=== PATIENT | male | born 1940 ===

== ENCOUNTER 2023-06-20 12:41 | Outpatient (REF) | payer MEDICARE, OTHER, SELFPAY ==
--- NOTE | ~2023-06-20 | XR_ITS ---
EXAMINATION: XR LUMBOSACRAL SPINE WITH OBLIQUES CLINICAL INFORMATION: Low back pain COMPARISON: None available. TECHNIQUE: AP, both oblique, and lateral views of the lumbar spine. Lateral view of the lumbosacral junction. Flexion and extension views FINDINGS: Facet degenerative change L4-S1. There is advanced degenerative change at the L2-L3 level, with minor retrolisthesis L2 upon L3, at 4.7 mm. There may be very minimal forward spondylolisthesis L4 upon L5 at 2 mm. No significant change on flexion versus extension. No fracture or destructive process. XR/XR lumbar spine 4V min IMPRESSION: Degenerative changes predominantly at L2-L3.. Facet degenerative change L4-S1. No instability.
== END 2023-06-20 12:42 | disposition home or self-care (01) ==
LOC: HO.HOSX 12:41
PROVIDERS: Visit Provider Neurological Surgery
DX: M51.16 Intervertebral disc disorders with radiculopathy, lumbar region (principal)
CPT/HCPCS: 72110; 99202

== ENCOUNTER 2023-06-20 12:41 | Outpatient (AMB) | payer MEDICARE, OTHER, SELFPAY ==
--- NOTE | 2023-06-20 12:58 | HO.SPINEOV ---
Intake Intake Visit Reasons: spinal stenosis Intake Note: Mr. Almaguer is here today c/o Low back pain that radiates to both legs. Consulting Solution Director Required: No Allergies No Known Allergies Allergy (Verified 06/20/23 12:59) Assessment & Plan Assessment & Plan (1) Lumbar disc herniation with radiculopathy: Code(s): M51.16 - Intervertebral disc disorders with radiculopathy, lumbar region Plan: Dear colleague Thank you for referring Jan Almaguer to the office today with a chief complaint of left-sided back pain radiating to his left thigh. HPI: Approximately 2 years ago the patient developed severe acute pain on the left side of his back radiating to his left thigh. Since that time the pain has been lingering and treated with for epidural steroid injections. The injections give temporary relief for months. Currently the pain is manageable and worse in the morning. The last injection was 3 weeks ago and he has not taking any medications since that time. He denies weakness or numbness. PMH: Endarterectomy Medications: Rosuvastatin, aspirin Allergies: NKDA Social history: Nonsmoker Physical Exam: Pleasant male. Straight leg raise is negative. Motor exam is intact for motor sensation and reflexes. Radiological Studies: MRI done at [facility] on 05/04/2023 shows a large left-sided L2-3 disc herniation that causes severe L2-3 spinal stenosis and compression of the left L3 nerve root. Dynamic lumbar x-rays today show a grade 1 L2-3 retrolisthesis without instability Impression/Plan: This 83-year-old male is suffering from persistent left L3 radiculopathy due to a large extruded disc herniation L2-3. The pain continues to return despite multiple epidural steroid injections and therefore I offered him L2-3 lumbar microdiskectomy, left-sided approach. He is at risk for recurrent disc herniation if this occurs then he will need a fusion of the segment. Thank you for allowing me to participate in your patients care. total time spent was 50 minutes in counseling ,coordination of plan, personal review of imaging, surgical decision making and subsequent plan Diogenes Rosario MD, PhD Spine Fellowship Trained Neurosurgeon Director, [facility] Orders: Orders XR lumbar spine 4V min Today M51.16 - Intervertebral disc disorders with radiculopathy, lumbar region Coding Level of Care Code New Pt Level 4 (80798) Diagnoses Lumbar disc herniation with radiculopathy M51.16
== END 2023-06-20 13:50 | disposition home or self-care (01) ==
PROVIDERS: PCP Internal Medicine; Visit Provider Neurological Surgery
DX: M51.16 Intervertebral disc disorders with radiculopathy, lumbar region (principal)
CPT/HCPCS: 99204

== ENCOUNTER 2023-10-11 05:44 | Day surgery (SDC) | payer MEDICARE, OTHER, SELFPAY ==
[2023-09-28 09:43] VITALS: BMI 21.9
--- NOTE | 2023-10-10 08:29 | HO.ANESPROP2 ---
HPI - Anesthesia Eval Consult details Narrative: 83yo M for Left L2-3 MicroLumbar discectomy Medically optimized Cardiac optimized. Follows [facility] cardiology for hld, carotid ds s/p CEA in 2019, PACs, orthostatsis DNR PONV PMFSH Active Problems Active Problems: All Active Problems Lumbar disc herniation with radiculopathy (Acute) Past Medical History Medical History PONV (postoperative nausea and vomiting) Lung nodule TIA (transient ischemic attack) Premature atrial contraction Elevated cholesterol Surgical History Surgical History H/O colonoscopy Hx of inguinal hernia repair History of carotid endarterectomy Social History Social History Are you a primary zoo caretaker to a significant other at home: No Do you presently have visiting nurse or other home services: No Comment: counts correct Patient Tobacco Use Status: Former Tobacco user Tobacco use type: Cigarette Years Smoked: 10 Meds Allergies Allergy/AdvReac Type Severity Reaction Status Date / Time No Known Allergies Allergy Verified 06/20/23 12:59 Home Medications ?Medication ?Instructions ?Recorded ?Confirmed ?Last Taken ?Type aspirin 81 mg tablet,delayed 81 mg PO DAILY 09/26/23 09/26/23 10/03/23 History release cholecalciferol (vitamin D3) 25 25 mcg PO DAILY 09/26/23 09/26/23 Unknown History mcg (1,000 unit) capsule (Vitamin D3) rosuvastatin 40 mg tablet 40 mg PO DAILY 09/26/23 09/26/23 Unknown History ibuprofen 200 mg tablet (Advil) 400 mg PO Q6H PRN Pain 09/28/23 09/28/23 10/03/23 History Exam Height,Weight and Vital Signs: Height 5 ft 7 in Weight 63.503 kg Pertinent Lab Results Pertinent Lab Results: 10/01/23 CBC and BMP from outside facility WNL Narrative Narrative: EKG 09/2023 NSR @ 65 ? LAE Carotid US 2022 1-49% stenosis bilat ICA Assessment and Plan Assessment Anesthesia Assessment: Chart Reviewed
[2023-10-11] VITALS (7 sets, daily range): BP systolic 150–164; BP diastolic 66–82; PULSE 66–86; RESP 14–18; TEMP 36.1; O2SAT 96–100
--- NOTE | ~2023-10-11 | FL_ITS ---
EXAMINATION: XR FLUOROSCOPY WITH IMAGES CLINICAL INFORMATION: L2-L3 procedure. COMPARISON: None available. TECHNIQUE: Fluoroscopy Supervised By: Dr. Diogenes Rosario. Fluoroscopy Time: 0 minutes, 5 seconds. Cumulative Dose: 1.163 mGy. DAP: 0.4787 Gycm2. Images: 3. FINDINGS: Intraoperative fluoroscopy and spot films were performed during a procedure in the OR. Marked degenerative change with disc space narrowing seen at L2-L3. A single probe is present at that level on the lateral radiograph. Please correlate with Dr. Rosario' report for complete details. FL/FL guidance in OR IMPRESSION: Intraoperative fluoroscopy and spot films were obtained. Please see Dr. Rosario' report for complete details.
[2023-10-11] MEDS: Gabapentin 300 MG CAPSULE PO (06:00)
[2023-10-11] MEDS: methocarbamoL 750 MG TABLET PO (06:00)
[2023-10-11] MEDS: Scopolamine 1.5 MG PATCH.TD.3 TRANSDERMA (06:10)
[2023-10-11] MEDS: Lactated Ringers 1,000 ML 100 ML IVCONT (06:21)
--- NOTE | 2023-10-11 07:14 | PC.NURSE ---
pt has ezcema all over back arms legs noted and buttock
--- NOTE | 2023-10-11 07:18 | P.CONAN_ITS ---
[facility] Active Problems Active Problems: All Active Problems Lumbar disc herniation with radiculopathy (Acute) Past Medical History Medical History PONV (postoperative nausea and vomiting) Lung nodule TIA (transient ischemic attack) Premature atrial contraction Elevated cholesterol Functional capacity: independent ambulation Family History Family history of problems with anesthesia: No Surgical History Surgical History H/O colonoscopy Hx of inguinal hernia repair History of carotid endarterectomy History of Problems with Anesthesia: No Social History Social History Are you a primary health care aide to a significant other at home: No Do you presently have visiting nurse or other home services: No Patient Tobacco Use Status: Former Tobacco user Tobacco use type: Cigarette Years Smoked: 10 Use of substances other than those prescribed or required for medical reasons: No Have you been hit, kicked, punched, or otherwise hurt by someone within the past year? If so, by whom?: No Are you DNR?: Yes Advance Directives Information Provided: Yes (as above noted-advised to bring copies DOS for [facility] chart) Advance Directives on File: No Recently lost weight without trying: No Eating poorly because of decreased appetite: No Nutrition Risks: Surgical patient >75years Meds Allergies Allergy/AdvReac Type Severity Reaction Status Date / Time No Known Allergies Allergy Verified 06/20/23 12:59 Active Medications: Current Medications Lactated Ringer's (Lr) 1,000 mls @ 100 mls/hr IVCONT .Q10H CASSIE Last Admin: 10/11/23 06:21 Dose: 100 mls/hr Home Medications ?Medication ?Instructions ?Recorded ?Confirmed ?Last Taken ?Type aspirin 81 mg tablet,delayed 81 mg PO DAILY 09/26/23 09/26/23 10/03/23 History release cholecalciferol (vitamin D3) 25 25 mcg PO DAILY 09/26/23 09/26/23 Unknown History mcg (1,000 unit) capsule (Vitamin D3) rosuvastatin 40 mg tablet 40 mg PO DAILY 09/26/23 09/26/23 Unknown History ibuprofen 200 mg tablet (Advil) 400 mg PO Q6H PRN Pain 09/28/23 09/28/23 10/03/23 History Exam Height,Weight and Vital Signs: Height 5 ft 7 in Weight 63.503 kg Last Vital Signs Temp 97 F 10/11/23 06:02 Pulse 70 10/11/23 06:02 Resp 18 10/11/23 06:02 BP 152/82 H 10/11/23 06:02 Pulse Ox 98 10/11/23 06:02 O2 Del Method Room Air 10/11/23 06:02 Airway Mallampati Class: II TM Dist: >3cm Neck ROM: Full Heart: RRR Lungs: CTA Assessment and Plan Assessment Anesthesia Assessment: Anesthesia Plan Discussed and Chart Reviewed Final Anesthetic Review Family History of Problems with Anesthesia: No History of Problems with Anesthesia: No NPO: Yes ASA Class: II Final Preanesthetic Review: Meds/Allgs Chart Reviewed, Consent Obtained/Reviewed, Anes Risks/Benef Reviewed and DNR Form (If Appl.) Patient Risk: Low Procedure Risk: Low Anesthetic Plan Anesthetic Plan: GA Disposition: Standard PACU
--- NOTE | 2023-10-11 07:33 | P.HPSUR_ITS ---
Pre-Procedural Eval Section A - 24 Hr Update-Section A only Date of Service: 10/11/23 The patient is an INPATIENT: No Changes since office visit: No Cold of Flu in the past 2 weeks, No New Medical Problems, No Changes in Medication and No Patient answered all questions The patient has been examined within 24 hours of the surgical procedure. The History & Physical has been completed within 30 days and I have reviewed it.: No Section B - Complete if H&P > 30 days Chief Complaint: Intervertebral disc disorders with radiculopathy, Allergies: Allergies Allergy/AdvReac Type Severity Reaction Status Date / Time No Known Allergies Allergy Verified 06/20/23 12:59 Review of Systems Sugical H&P ROS: Negative: Constitution, Cardiovascular, Respiratory, Neurological, Psychiatric, Hem-Onc, Allergic/Immunologic, Gastrointestinal, Genitourinary, Musculoskeletal, Integumentary, Endocrine and Eyes/Ears/Nose/Thro at Exam Surgical H&P Exam: Normal: HEENT, Normal: Heart, Normal: Lungs, Normal: Extremities, Normal: Abdomen, Normal: Skin and Normal: Neurological (awake, alert, oriented x 3 ) Plan Left L2-3 microdiskectomy Time Spent With Patient Time: Total time managing care of this patient today _5___ minutes.
--- NOTE | 2023-10-11 07:34 | P.DS_ITS ---
DS: Providers Provider Date of Service: 10/11/23 Date of discharge: 10/11/23 Primary care physician: Lisa Batista MD Admitting clinician: Diogenes Rosario DS: Diagnosis Discharge Diagnosis (1) Lumbar disc herniation with radiculopathy: Status: Acute DS: Summary Time Attestation Discharge Coordination Time (in mins): 5 Quality: Safe Use of Opioids Does Pt have an Active Cancer Diagnosis on the Problem List?: No Quality: Stroke Does the patient have a stroke diagnosis?: No Physical Exam 2 Vital Signs: Vital Signs: Last Vital Signs Temp 97 F 10/11/23 06:02 Pulse 70 10/11/23 06:02 Resp 18 10/11/23 06:02 BP 152/82 H 10/11/23 06:02 Pulse Ox 98 10/11/23 06:02 O2 Del Method Room Air 10/11/23 06:02 BMI result Body Mass Index 21.9 Discharge Plan Discharge Patient Disposition: Home, Self-Care Referrals: Lisa Batista MD [Primary Care Provider] - 1 Week Discharge Medications: New docusate sodium [Colace] 100 mg capsule 100 mg PO BID Qty: 20 0RF oxycodone 5 mg tablet 5 mg PO Q4H PRN (Reason: pain) Qty: 20 0RF Rx Instructions: Partial Fill upon patient request. Continued rosuvastatin 40 mg tablet 40 mg PO DAILY cholecalciferol (vitamin D3) [Vitamin D3] 25 mcg (1,000 unit) Capsule 25 mcg PO DAILY ibuprofen [Advil] 200 mg Tablet 400 mg PO Q6H PRN (Reason: Pain) Held aspirin 81 mg Tablet,Delayed Release (Dr/Ec) 81 mg PO DAILY Hold Instructions: Resume on 10/18/23. resume one week after surgery Discharge Orders: Discharge Order (Routine); Ordered 10/11/23 Ordered By: Brendan Miller Diet: Advance to usual diet Activity on Discharge: As tolerated Activity Restrictions/Additional Instructions: After your spinal surgery we ask you to observe the following restrictions/guidelines: Activity: It is normal to feel some discomfort as you increase your activity, but that will improve with time. We ask you avoid heavy lifting or acitivities that cause pain. As a general rule, 8lbs is a safe limit for lifting right after surgery. Walk as much as you feel comfortable but not to exhaustion. You will feel extra tired the first few days after surgery. Stay well hydrated. It is OK to walk up and down stairs You may return to driving when you are off narcotics (such as vicodin, oxycodone, dilaudid, etc), and you are back to normal functional capacity. If you have any concerns please check with office before driving. Return to work is specific to each patient and each surgery, so please speak with your doctor/PA at first follow up. Please bring paperwork such as FMLA at that time if you need it filled out. Medications: Resume your aspirin one week after surgery For optimum pain control, it is best to start with a combination of 500 mg of Tylenol every 4 hours with 600 mg of Motrin every 8 hours, and use narcotics as needed in between for breakthrough pain. We will give you a short supply of narcotics after surgery (usually one weeks worth). If you need more please call the office but do not use more than prescribed. You will need to give our office 48 hours notice if you need narcotics refilled and we do not fill narcotics on weekends or evenings. If you are on a narcotic, it is a good idea to take a stool softener such as colace or senna to avoid constipation If you take blood thinner such as aspirin, Plavix, Coumadin, Effient, Eliquis etc for conditions such as Afib, DVT, Pulmonary embolus, coronary disease, stents etc please speak with your surgeon about specific details as to when you can resume these medications. You can resume NSAIDs on post op day 1 (eg: Motrin, Naproxen, etc). Follow up: Please call the office, , after surgery to arrange a 3 week follow up for wound check. Wound Care: You may remove your dressing on the first day after surgery. ?You may ?leave open to air. Please do not remove the steri strips underneath. they will fall off on their own in one week. IT IS NORMAL FOR THE WOUND TO OOZE OR BE BLOODY FOR A FEW DAYS AFTER SURGERY. ?IF THIS HAPPENS JUST PLACE NEW DRESSING OVER IT TO AVOID STAINING CLOTHES. You may shower on post op day # 1 We ask that you do not let the water soak the wound. If it does get wet, just towel dry lightly. Please do not scrub your incision or place any type of chemical/ointment on the wound. No tub baths, pools or jacuzzis for one month. If you have any leaking or redness from your wound, or fevers, please call office Print Language: Latvian
--- NOTE | 2023-10-11 08:47 | W.PM.OPN ---
Operative Note Operative Note Date of Service: 10/11/23 Narrative: Preoperative diagnosis: Left L3 lumbar radiculopathy due to disc herniation Postoperative diagnosis: Same Procedure: L2-3 lumbar microdiskectomy with microscope Surgeon: Diognees Rosario MD, PhD Counseling Psychologist: jody Aguirre This patient is suffering from a left L3 lumbar radiculopathy due to a large L2-3 disc herniation compressing the left L3 nerve root. Imaging also shows a spondylolisthesis at this level. He was offered a microdiskectomy but is aware that if recurrent disc occurs that he needs a fusion surgery. The procedure complications were explained. The patient was consented. The patient was brought to the operating room and endotracheally intubated. The patient was turned in a prone position on the Saurabh frame. Prepping and draping was done followed by time-out. A mid lumbar incision was made followed by release of the paravertebral muscles on the left side to expose the L2-3 interspace. An intraoperative x-rays obtained to confirm the correct level. The microscope was brought in. A L2 laminotomy was done followed by opening of the flavum ligament. The L3 nerve root was identified and retracted medially to expose the large L2-3 disc herniation. I performed a partial facetectomy to get better access to the disc herniation. Then I perforated the annulus and pushed out several large fragments of disc herniation. This resulted in an excellent decompression of the L3 nerve root. Hemostasis was done. The microscope was removed. Marcaine was injected intramuscularly.The incision was closed in two layers. Steri-Strips used to approximate seizure. An op-site were taken there was used to cover the incision. All sponge and needle counts were correct. Patient was extubated and transported in stable condition to recovery room. this procedure was done with the aid of a physician digital marketing assistant who performed the initial exposure until the microscope was brought in and performed the closure of the incision. Anesthesia: General Blood loss: 10 mL Complications: None Specimen: None Surgical time: 45 minutes Disposition: Discharge home
--- NOTE | 2023-10-11 15:48 | HO.POSTANES ---
Post Anesthesia Evaluation Post Anesthesia Evaluation Date of Service: 10/11/23 Vital Signs: Vital Signs Temp Pulse Resp BP Pulse Ox O2 Del Method O2 Flow Rate 10/11/23 09:54 97 F 73 16 161/68 H 99 Room Air 10/11/23 09:39 66 14 159/77 H 99 Room Air 10/11/23 09:24 73 14 163/81 H 100 Nasal Cannula 2 10/11/23 09:19 69 16 150/66 H 96 Nasal Cannula 2 10/11/23 09:14 73 16 164/73 H 96 Room Air 10/11/23 09:09 97 F 86 16 156/75 H 99 Room Air 10/11/23 06:02 97 F 70 18 152/82 H 98 Room Air Anesthesia: General Endotracheal-GETA Mental Status: Awake Pain Control: Satisfactory Nausea/Vomiting: None Hydration: Adequate Anesthesia-Related Issues: No Anes. Related Issues
== END 2023-10-11 10:32 | disposition home or self-care (01) ==
PROVIDERS: PCP Internal Medicine; Visit Provider Neurological Surgery
PROC: (CPT 63030; principal; 2023-10-11 07:30)
DX: M51.16 Intervertebral disc disorders with radiculopathy, lumbar region (principal); E78.00 Pure hypercholesterolemia, unspecified; I49.1 Atrial premature depolarization; R91.1 Solitary pulmonary nodule; J47.9 Bronchiectasis, uncomplicated; Z86.73 Personal history of transient ischemic attack (TIA), and cerebral infarction without residual deficits; Z79.82 Long term (current) use of aspirin; Z79.1 Long term (current) use of non-steroidal anti-inflammatories (NSAID); Z79.899 Other long term (current) drug therapy; Z98.890 Other specified postprocedural states; Z66 Do not resuscitate; Z87.891 Personal history of nicotine dependence
CPT/HCPCS: 63030; J0131; J0690; J1100; J1885; J2250; J2405; J2704; J3010

== ENCOUNTER → 2023-10-11 05:44 | Outpatient (BNV) | payer MEDICARE, OTHER, SELFPAY | PROVIDERS: PCP Internal Medicine; Visit Provider Neurological Surgery | DX: M51.16 Intervertebral disc disorders with radiculopathy, lumbar region (principal) | CPT/HCPCS: 63030; 99499 ==

== ENCOUNTER 2023-10-31 14:38 | Outpatient (REF) | payer MEDICARE, OTHER, SELFPAY | END 2023-10-31 14:39 | disposition home or self-care (01) | LOC: HO.HOSX 14:38 | PROVIDERS: PCP Internal Medicine; Visit Provider Physician Assistant | DX: Z47.89 Encounter for other orthopedic aftercare (principal); Z87.39 Personal history of other diseases of the musculoskeletal system and connective tissue | CPT/HCPCS: 99212 ==

== ENCOUNTER 2023-10-31 14:38 | Outpatient (AMB) | payer MEDICARE, OTHER, SELFPAY ==
--- NOTE | 2023-10-31 14:50 | A.SPINEOV_ITS ---
Intake Visit Reasons: 1st post op Intake Note: Mr. Almaguer is here today for his 1st post-op visit. Tax Staff Accountant Required: No Allergies No Known Allergies Allergy (Verified 10/31/23 14:51) Assessment & Plan Assessment & Plan (1) Lumbar disc herniation with radiculopathy: Code(s): M51.16 - Intervertebral disc disorders with radiculopathy, lumbar region Category: Medical Plan Procedure: Left L2-3 Lumbar Microdiskectomy Elli comes in today for his 1st follow up visitafter having an L2-3 microdiskectomy completed by our service. He reports that he has lost quite a bit of pain in his low back especially with lateral spine rotation. In addition to this he still has pain in his left hip and near his left knee which he states is worse 1st thing in the morning, gradually resolves with movement as he goes throughout the day. This may be related to a component of osteoarthritis versus lumbar radiculopathy. Dr. Rosario was able to see the patient alongside this journalists and other writers and explained to the patient that is lateral rotation pain is likely result of the bone removal during the microdiskectomy. We answered all the patient's postoperative questions to the best of our ability. No new neurological deficits. The patient is able to ambulate well and rises from a seated position without difficulty. His posterior incision site is closed, well healed, with no signs of drainage. We would like to follow up with the patient again in 6 weeks. At that time we will get a set of x-rays to review with the patient. Donovan Rosario MD,PhD [facility] Orders: Orders XR lumbar spine 4V min Today M51.16 - Intervertebral disc disorders with radiculopathy, lumbar region Coding Level of Care Code Global (21806) Diagnoses Lumbar disc herniation with radiculopathy M51.16
== END 2023-10-31 15:18 | disposition home or self-care (01) ==
PROVIDERS: PCP Internal Medicine; Visit Provider Physician Assistant
DX: M51.16 Intervertebral disc disorders with radiculopathy, lumbar region (principal)
CPT/HCPCS: 99024

== ENCOUNTER 2023-12-14 12:50 | Outpatient (REF) | payer MEDICARE, OTHER, SELFPAY ==
--- NOTE | ~2023-12-14 | XR_ITS ---
EXAMINATION: XR LUMBOSACRAL SPINE CLINICAL INFORMATION: M51.16 - Intervertebral disc disorders with radiculopathy, lumbar region COMPARISON: 06/20/2023. TECHNIQUE: 5 views of the lumbar spine, inclusive of flexion and extension views, were obtained. FINDINGS: There is normal bone mineralization. No compression deformities, fractures, or suspicious bone lesions. There is a minimal right convex scoliosis, which could be positional. There is facet degeneration spanning L4-S1. Degenerative disc changes are present with a mild to moderate degree, with severe changes focally at L2-3. Neutral view demonstrates there is a normal lumbar lordosis. There is a 5 mm retrolisthesis of L2 on L3, which appears degenerative. There is a trace 2 mm anterolisthesis L4 on L5, also degenerative in appearance. On flexion and extension, these remain relatively static without definite worsening to suggest instability. No developing additional subluxations. Soft tissues demonstrate aortobiiliac calcifications. Probable gallstone in the right upper quadrant. XR/XR lumbar spine 4V min IMPRESSION: 1. No acute bony findings lumbar spine. 2. Stable Mild to moderate lumbar spondylosis as described, most significant at L2-3. No definite instability. Electronically signed by: Alex Klein MD 02/24/2024 10:32 PM GIULIANO
== END 2023-12-14 12:51 | disposition home or self-care (01) ==
LOC: HO.XRAY 12:50
PROVIDERS: Visit Provider Physician Assistant
DX: M51.16 Intervertebral disc disorders with radiculopathy, lumbar region (principal)
CPT/HCPCS: 72110; 99212

== ENCOUNTER → 2023-12-14 12:55 | Outpatient (BNV) | payer MEDICARE, OTHER, SELFPAY | PROVIDERS: Visit Provider Radiology Diagnostic Radiology | DX: M51.16 Intervertebral disc disorders with radiculopathy, lumbar region (principal) | CPT/HCPCS: 72110 ==

== ENCOUNTER 2023-12-14 13:23 | Outpatient (AMB) | payer MEDICARE, OTHER, SELFPAY ==
--- NOTE | 2023-12-14 13:26 | A.SPINEOV_ITS ---
Intake Visit Reasons: 2nd post op with xrays Intake Note: Mr. Almaguer is here today for his 2nd post-op visit with xrays. Crossword Puzzle Maker Required: No Allergies No Known Allergies Allergy (Verified 10/31/23 14:51) Assessment & Plan Assessment & Plan (1) Lumbar disc herniation with radiculopathy: Code(s): M51.16 - Intervertebral disc disorders with radiculopathy, lumbar region Category: Medical Plan Dear colleague, On 12/13/2023, I saw for 2nd postoperative visit Elli Almaguer. As you know, he is status post left L2-3 microdiskectomy. The radiating pain is gone. He continues to have a sudden shooting pain on the left side of his back that can occur when he steps down the stairs or coughs. In the morning he has a bandlike pain in the back. Overall, he is doing much better than preoperatively. I told him that the pain is most likely coming this is most likely part of the healing process. I advised him to continue his current activities. I would stay away from excessive stretching. I would like another follow-up in 3 months. Diogenes Rosario MD, PhD Spine Fellowship Trained Neurosurgeon Director, [facility] Coding Level of Care Code Global (29510) Diagnoses Lumbar disc herniation with radiculopathy M51.16
== END 2023-12-14 14:02 | disposition home or self-care (01) ==
PROVIDERS: PCP Internal Medicine; Visit Provider Neurological Surgery
DX: M51.16 Intervertebral disc disorders with radiculopathy, lumbar region (principal)
CPT/HCPCS: 99024

== ENCOUNTER 2024-03-07 14:09 | Outpatient (AMB) | payer MEDICARE, OTHER, SELFPAY ==
--- NOTE | 2024-03-07 14:15 | A.SPINEOV_ITS ---
Intake Visit Reasons: 3M follow up Intake Note: Mr. Almaguer is here today for his 3 month F/u. 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 She know, he underwent a lumbar microdiskectomy for left lumbar radiculopathy that completely resolved. Unfortunately, he continues to complain of a mechanical pain on the left side of his back. In rest the pain is absent. Any kind of movement gives him this left-sided back pain. A dynamic lumbar x-rays shows no signs of instability. Clinically it sounds like a pain it originates from the facet joint. I would like to order an MRI of the lumbar spine to see if the facet joint in the surgical area is inflammation. We will then send him for a facet block. Thank you for allowing me take care of your patient. Diogenes Rosario MD, PhD Spine Fellowship Trained Neurosurgeon Director, [facility] [place] [facility] Orders: Orders MR lumbar spine wo/w con Today M54.59 - Other low back pain Coding Level of Care Code Est Pt Level 2 (58440) Diagnoses Lumbar facet joint pain M54.59
== END 2024-03-07 16:04 | disposition home or self-care (01) ==
PROVIDERS: PCP Internal Medicine; Visit Provider Neurological Surgery
DX: M54.59 Other low back pain (principal)
CPT/HCPCS: 99212

== ENCOUNTER → 2024-03-07 14:09 | Outpatient (BNVA) | payer MEDICARE, OTHER, SELFPAY | PROVIDERS: PCP Internal Medicine; Visit Provider Neurological Surgery | DX: M54.59 Other low back pain (principal) | CPT/HCPCS: 99212 ==

== ENCOUNTER 2024-04-11 14:34 | Outpatient (AMB) | payer MEDICARE, OTHER, SELFPAY ==
--- NOTE | 2024-04-11 15:08 | A.SPINEOV_ITS ---
Vital Signs 04/11/24 15:09 Height 5 ft 6.5 in Weight 140 lb BMI 22.3 Intake Visit Reasons: MRI f/u Intake Note: Mr. Almaguer is here today to F/u on the Results to his MRI. Grinder Operator Automatic Required: No Allergies No Known Allergies Allergy (Verified 04/11/24 15:10) Physical Exam Vital Signs: BMI result Body Mass Index 22.3 Assessment & Plan Assessment & Plan (1) Lumbar facet joint pain: Code(s): M54.59 - Other low back pain Category: Medical Plan Dear colleague, On 04/11/2024 I saw for follow-up Elli Almaguer. As you know he underwent a successful L2-3 lumbar microdiskectomy to treat left lumbar radiculopathy. He remains complaining of a left painful spots at the L2-3 area, especially in the morning that responds to Advil. A 2nd complaint is pain across the lumbar spine. Activity improves the symptoms. We repeated the MRI of the lumbar spine that does not show any signs of inflammation in the L2-3 area. It does show the preexisted L2-3 spondylolisthesis that however shows no significant instability on flexion-extension x-rays. We had an extensive discussion again. I think the pain is related to the left L2-3 facet joint or coming from the L2-3 spondylolisthesis. However, I think it goes too far to offer him an L2-3 fusion and the patient agrees with that. He could try an L2-3 facet block but currently wants to hold off as it does respond to anti-inflammatory drugs. Follow-up as needed. Than 30 minutes in his consult reviewing imaging and answering questions. Diogenes Rosario MD, PhD Spine Fellowship Trained Neurosurgeon Director, [facility] Coding Level of Care Code Est Pt Level 4 (92154) Diagnoses Lumbar facet joint pain M54.59
[2024-04-11 15:09] VITALS: BMI 22.3
== END 2024-04-11 15:51 | disposition home or self-care (01) ==
PROVIDERS: PCP Internal Medicine; Visit Provider Neurological Surgery
DX: M54.59 Other low back pain (principal)
CPT/HCPCS: 99214

== ENCOUNTER → 2024-04-11 14:34 | Outpatient (BNVA) | payer MEDICARE, OTHER, SELFPAY | PROVIDERS: PCP Internal Medicine; Visit Provider Neurological Surgery | DX: M54.59 Other low back pain (principal) | CPT/HCPCS: 99212 ==

== ENCOUNTER 2025-01-28 13:18 | Outpatient (AMB) | payer MEDICARE, OTHER, SELFPAY ==
--- OUTSIDE RECORDS SUMMARY | 2016-05-05 | XMS_ITS | Encounter Summary ---
Author Organization [facility] Address [address] [place] [address] Phone Care Team Providers Care Manager Cardiology Name Role Phone Unavailable Primary Care Provider Unavailabl e Reason for Visit * MRI/CAT Scan - Closed Specialty Diagnoses / Procedures Referred By Contac t Referred To Contact Procedures CT Chest Outside (No Interpretation) Kang Hernandez MD [address] [facility] [address] [place] [address] Phone: tel: fax: mailto:[email or web address] Referral ID Status Reason Start Date Expiration Date Visits Re quested Visits Authorized [id number] Closed 07/21/2016 07/21/2017 1 1 Encounter Details Date Type Department Care Team (Late st Contact Info) Description 05/05/2016 Hospital Encounter [facility] [address] [place] [address] Kang Hernandez MD [address] [place] [address] [address] [place] [address] [email or web address] Social History Tobacco Use Types Packs/Day Years Used Date Smoking Tobacco: Former Cigarettes 0.5 10 1 960 - 1970 Smokeless Tobacco: Never Comments:As a teenager for a few years per patient Alcohol Use Standard Drinks/Week Comments Yes 3 (1 standard drink = 0.6 oz pur e alcohol) Education Answer Date Recorded Are you interested in more education? Not on mena e 07/21/2022 Are you concerned about learning? Not on file 07/21/2022 No 07/21/2022 No 07/21/2022 Digital Access Answer Date Recorded No 08/19/2022 No 08/19/2022 Reliable internet access at home? Not on file 08/19/2022 Device with a working camera? Not on file Intimate Partner Violence Answer Date R ecorded Denied Basic Needs Not on file 11/28/2023 In the past 12 months have y ou been in a relationship with a person who hurts, threatens, or tries to control you? No 11/28/2023 Worried food would run out Not on file 11/27 In the past 12 months have y ou been in a relationship with a person who hurts, threatens, or tries to control you? No 11/28/2023 Sex and Gender Information Value Date Recorded Sex Assigned at Male 11/28/2020 12:19 PM EDT Legal Sex Male 9:43 AM EDT Gender Identity Male 11/28/2020 12:19 PM EDT Sexual Orientation Straight 11/28/2020 12 :19 PM EDT documented as of this encounter Plan of Treatment Not on file documented as of this encounter Procedures Procedure Name Priority Date/Time Associated Diagnosis Comments CT CHEST OUTSIDE (NO INTERPRETATION) Routine 05/05/2016 12:00 AM EST documented in this encounter Results * CT Chest Outside (No Interpretation) (05/05/2016 12:00 AM EST) Narrative [facility] IMG INTERFACES - 07/21/2016 3:30 PM EDT This study is for PACS storage only and not for interpretation. us Kang Hernandez MD IMG OUTSIDE IMAGING W /OUT INTERPRETATION Final Result [facility] IMG INTERFACES documented in this encounter Visit Diagnoses Not on filedocumented in this encounter Additional Health Concerns Infection Onset Date Last Indicated Resolved Time COVID-19 05/05/2023 05/05/2023 05/26/2023 1:21 AM EST documented as of this encounter Additional Source Comments The information contained in this document represents components of the legal health record. It is not the complete legal health record.[facility]
--- OUTSIDE RECORDS SUMMARY | 2016-05-05 00:15 | XMS_ITS | Encounter Summary ---
Author Organization [facility] Address [address] [place] [address] Phone Care Team Providers Care Shank Sorter Name Role Phone Unavailable Primary Care Provider Unavailabl e Reason for Visit * MRI/CAT Scan - Closed Specialty Diagnoses / Procedures Referred By Contac t Referred To Contact Procedures CT Chest Outside (No Interpretation) Kang Hernandez MD [address] [place] [id number] Phone: tel: fax: mailto:[email or web address] [email or web address] Referral ID Status Reason Start Date Expiration Date Visits Re quested Visits Authorized [id number] Closed 07/21/2016 07/21/2017 1 1 Encounter Details Date Type Department Care Team (Late st Contact Info) Description 05/05/2016 12:15 AM EST Hospital Encounter [facility] [address] [place] [address] Kang Hernandez MD [address] [place] [phone] [email or web address] Social History Tobacco Use Types Packs/Day Years [...] CT CHEST OUTSIDE (NO INTERPRETATION) Routine 05/05/2016 12:15 AM EST documented in this encounter Results * CT Chest Outside (No Interpretation) (05/05/2016 12:15 AM EST) Narrative [facility] IMG INTERFACES - 07/21/2016 3:30 PM EDT This study is for PACS storage only and not for interpretation. us Kang Hernandez MD IMG OUTSIDE IMAGING W /OUT INTERPRETATION Final Result [facility] IMG INTERFACES documented in this encounter Visit Diagnoses Not on filedocumented in this encounter Additional Health Concerns Infection Onset Date Last Indicated Resolved Time COVID-19 05/05/2023 05/05/2023 05/26/2023 1:21 AM EST documented as of this encounter Additional Source Comments The information contained in this document represents components of the legal health record. It is not the complete legal health record.[facility] Андрей
--- NOTE | 2025-01-28 13:27 | HO.SPINEOV ---
Intake Visit Reasons: LBP Intake Note: Mr. Almaguer is here today c/o low back pain. 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 He continues to have moderate discomfort more on the left side was low back. The pain comes with sudden movements, extension and rotation all forces. At all points towards the facet joints. He had facet blocks done which unfortunately did not provide any relief. The final option would be to do an L2-3 fusion but unfortunately I can not give him an highest success rate. He is aware of this and he is not considering surgery. He will continue anti-inflammatory drugs that work well. I spent 15 minutes in his consult for history and answering questions. Diogenes Rosario MD, PhD Spine Fellowship Trained Neurosurgeon Director, [facility] [place] [facility] Coding Level of Care Code Est Pt Level 2 (08145) Diagnoses Lumbar facet joint pain M54.59
--- OUTSIDE RECORDS SUMMARY | 2025-01-28 16:07 | XMS_ITS | Encounter Summary ---
Author Organization [facility] Address [address] [place] [address] Phone Care Team Providers Care Security Officer Name Role Phone Abdiel Bar MD Unavailable [phone] Lisa Batista A Primary Care Provider [phone] Lisa Batista MD Unavailable [phone] Encounter Details Date Type Department Care Team (Late st Contact Info) Description 01/08/2025 Orders Only [facility] [address] [place] [address] [place] [address] Lisa Batista MD [address] [place] [address], [address] [place] [address] [email or web address] Bradycardia Social History Tobacco Use Types Packs/Day Years [...] on file documented as of this encounter Visit Diagnoses Diagnosis Bradycardia Other specified cardiac dysrhythmias documented in this encounter Additional Health Concerns Assessment Noted Time PHQ-2 Depression Total Score: 0 01/09/20 25 1:48 PM EDT documented as of this encounter Care Teams Security Officer Relationship Specialty Start Date End Date Lisa Batista MD [address] [place] [address] [email or web address] PCP - General Internal Medicine 06/30/21 Abdiel Bar MD [address] [place] [address] [email or web address] Historical LMR Provider 01/10/17 Lisa Batista MD [address] [place] [address] [email or web address] Insurance Assigned Provider 06/30/23 documented as of this encounter Additional Source Comments The information contained in this document represents components of the legal health record. It is not the complete legal health record.[facility]
--- OUTSIDE RECORDS SUMMARY | 2025-01-28 16:07 | XMS_ITS | Encounter Summary ---
Author Organization [facility] Address [address] [place] [address] Phone Care Team Providers Care Binder Fixer Name Role Phone Abdiel Bar MD Unavailable Lisa Batista A Primary Care Provider [phone] Lisa Batista A Unavailable [phone] Encounter Details Date Type Department Care Team (Late st Contact Info) Description 12/27/2023 Ancillary Orders [address] [address] Donna Ortega MD [address] [place] [address] [facility], [place], [place] [id number] [email or web address] Right shoulder pain, unspecified chronicity (Primary Dx) Social History Tobacco Use Types Packs/Day Years [...] as of this encounter Plan of Treatment Pending Results Name Type Priority Associated Diagnoses Date /Time FL Guidance Needle Placement Non-Spine Imaging Routine Right shoulder pain, unspecified chronicity 01/01/2024 7:53 AM EDT Scheduled Orders Name Type Priority Associated Diagnoses Orde r Schedule FL Guidance Needle Placement Non-Spine Imaging Routine Right shoulder pain, unspecified chronicity 1 Occurrences starting 12/27/2023 until 03/28/2024 documented as of this encounter Visit Diagnoses Diagnosis Right shoulder pain, unspecified chronicity- Primary documented in this encounter Additional Health Concerns Assessment Noted Time PHQ-2 Depression Total Score: 0 11/28/19 24 2:31 PM EDT documented as of this encounter Care Teams Binder Fixer Relationship Specialty Start Date End Date Lisa Batista MD [address] [place] [address], [address] [place] [address] [email or web address] PCP - General Internal Medicine 06/30/21 Abdiel Bar MD [address] [place] [address] [email or web address] Historical LMR Provider 01/10/17 Lisa Batista MD [address] [place] [address], [address] [place] [address] [email or web address] Insurance Assigned Provider 06/30/23 documented as of this encounter Additional Source Comments The information contained in this document represents components of the legal health record. It is not the complete legal health record.[facility]
--- OUTSIDE RECORDS SUMMARY | 2025-01-28 16:07 | XMS_ITS | Encounter Summary ---
Author Organization [facility] Address [address] [place] [address] Phone Care Team Providers Care Associate Justice Name Role Phone Abdiel Bar MD Unavailable [phone] Unknown, Unknown MD Primary Care Provider James Batista, Lisa A Primary Care Provider [phone] Lester, Lisa A Unavailable [phone] Encounter Details Date Type Department Care Team (Late st Contact Info) Description 05/20/2021 Ancillary Orders [address] [address] Donna Ortega MD [address] [place] [address] Orthopedics & Sports Medicine, [facility]. [place], [place] [id number] [email or web address] Right shoulder pain, unspecified chronicity Social History Tobacco Use Types Packs/Day Years Used Date Smoking Tobacco: Former Smokeless Tobacco: Never Comments:As a teenager for a few years per patient Alcohol Use Standard Drinks/Week Comments Yes 3 (1 standard drink = 0.6 oz pur e alcohol) Sex and Gender Information Value Date Recorded [...] Imaging Routine Right shoulder pain, unspecified chronicity 05/24/2021 7:46 AM EST Scheduled Orders Name Type Priority Associated Diagnoses Orde r Schedule FL Guidance Needle Placement Non-Spine Imaging Routine Right shoulder pain, unspecified chronicity 1 Occurrences starting 05/20/2021 until 08/17/2021 documented as of this encounter Visit Diagnoses Diagnosis Right shoulder pain, unspecified chronicity documented in this encounter Additional Health Concerns Infection Onset Date Last Indicated Resolved Time COVID-19 05/05/2023 05/05/2023 05/26/2023 1:21 AM EST Assessment Noted Time PHQ-2 Depression Total Score: 0 05/14/19 18 1:10 PM EST documented as of this encounter Care Teams Associate Justice Relationship Specialty Start Date End Date Unknown, Unknown, MD PCP - General 08/03/20 06/29/21 Lisa Batsita MD [address] [place] [phone] [email or web address] PCP - General Internal Medicine 06/30/21 Abdiel Bar MD [address] [place] [address] [email or web address] Historical LMR Provider 01/10/17 Lisa Batista MD [address] [place] [address] [email or web address] Insurance Assigned Provider 06/30/23 documented as of this encounter Additional Source Comments The information contained in this document represents components of the legal health record. It is not the complete legal health record.[facility]
--- OUTSIDE RECORDS SUMMARY | 2025-01-28 16:07 | XMS_ITS | Encounter Summary ---
Author Organization [facility] Address [address] [place] [address] Phone Care Team Providers Care Manager Fraud Name Role Phone Abdiel Bar MD Primary Care Provider + Chicho Allred MD Unavailable [phone] Abdiel Bar MD Unavailable Alejo Weems MD Unavailable [phone] Abdiel Bar MD Unavailable [phone] Blanca Souza RNbarrel line operator Provider [phone] Lisa Batista A Unavailable [phone] Unknown, Unknown MD Primary Care Provider UnavaLisa Ruano A Primary Care Provider [phone] Lisa Batista A Unavailable [phone] Encounter Details Date Type Department Care Team (Late st Contact Info) Description 07/21/2016 Procedure Pass [facility] [address] [place] [address] Social History Tobacco Use Types Packs/Day Years [...] documented as of this encounter Visit Diagnoses Not on filedocumented in this encounter Additional Health Concerns Infection Onset Date Last Indicated Resolved Time COVID-19 05/05/2023 05/05/2023 05/26/2023 1:21 AM EST documented as of this encounter Care Teams Manager Fraud Relationship Specialty Start Date End Date Abdiel Bar MD [email or web address] PCP - General Family Medicine 07/10/16 12/01/19 Blanca Souza RN [address] [place] [address] [email or web address] PCP - General Internal Medicine 12/02/19 08/02/20 Unknown, Danita, MD PCP - General 08/03/20 06/29/21 Lisa Batista MD [address] [place] [address] [email or web address] PCP - General Internal Medicine 06/30/21 Chicho Allred MD [address] [place] [address] [email or web address] Historical LMR Provider 01/10/17 04/02/21 Abdiel Bar MD [address] [place] [address] [email or web address] Historical LMR Provider 01/10/17 Alejo Weems MD [address] [place] [address] Orth[facility] Sports Medicine, [place] [address] [email or web address] Historical LMR Provider 01/10/17 2 Abdiel Bar MD [address] [place] [address] [email or web address] Insurance Assigned Provider 07/27/18 07/03/20 Lisa Batista MD [address] [place] [address] [email or web address] Insurance Assigned Provider 07/03/20 04/02/21 Lisa Batista MD [address] [place] [address] [email or web address] Insurance Assigned Provider 06/30/23 documented as of this encounter Additional Source Comments The information contained in this document represents components of the legal health record. It is not the complete legal health record.[facility]
--- OUTSIDE RECORDS SUMMARY | 2025-01-28 16:07 | XMS_ITS | Encounter Summary ---
Author Organization [facility] Address [address] [place] [address] Phone Care Team Providers Care Doughnut Batter Mixer Name Role Phone Abdiel Bar MD Primary Care Provider + Chicho Allred MD Unavailable [phone] Abdiel Bar MD Unavailable Alejo Weems MD Unavailable [phone] Abdiel Bar MD Unavailable Blanca Souza RNlobsterman Provider [phone] Lisa Batista A Unavailable [phone] Unknown, Unknown MD Primary Care Provider UnavaLisa Ruano A Primary Care Provider [phone] Lisa Batista A Unavailable [phone] Encounter Details Date Type Department Care Team (Late st Contact Info) Description 07/21/2016 Procedure Pass [facility] [address] [place] [address] Social History Tobacco Use Types Packs/Day Years [...] documented as of this encounter Care Teams Doughnut Batter Mixer Relationship Specialty Start Date End Date Abdiel Bar MD [email or web address] PCP - General Family Medicine 07/10/16 12/01/19 Blanca Souza RN [address] [place] [address] [email or web address] PCP - General Internal Medicine 12/02/19 08/02/20 Unknown, Danita, MD PCP - General 08/03/20 06/29/21 Lisa Batista MD [address] [place] [address] [email or web address] PCP - General Internal Medicine 06/30/21 Chicho Allred MD [address] [place] [address] [email or web address] Historical LMR Provider 01/10/17 04/02/21 Abdiel Bar MD [address] [place] [address] [email or web address] Historical LMR Provider 01/10/17 Alejo Weems MD [address] [place] [address] [facility] Sports Medicine, [place] [address] [email or web address] Historical LMR Provider 01/10/17 2 Abdiel Bar MD [address] [place] [address] [email or web address] Insurance Assigned Provider 07/27/18 07/03/20 Lisa Batista MD [address] [place] [address] [email or web address] Insurance Assigned Provider 07/03/20 04/02/21 Lisa Batista MD [address] [place] [address] [email or web address] Insurance Assigned Provider 06/30/23 documented as of this encounter Additional Source Comments The information contained in this document represents components of the legal health record. It is not the complete legal health record.[facility]
--- OUTSIDE RECORDS SUMMARY | 2025-01-28 16:07 | XMS_ITS | Encounter Summary ---
Author Organization [facility] Address [address] [place] [address] Phone Care Team Providers Care Typesetter Perforator Operator Name Role Phone Chicho Allred MD Unavailable Abdiel Bar MD Unavailable Alejo Weems MD Unavailable [phone] Abdiel Bar MD Unavailable Blanca Souza RNmanager lvn Provider [phone] Batista, Lisa A Unavailable Unknown, Unknown MD Primary Care Provider James Batista, Lisa A Primary Care Provider Lester, Lisa A Unavailable Encounter Details Date Type Department Care Team (Late st Contact Info) Description 12/26/2019 Procedure Pass [address] [place] [address] Social History Tobacco Use Types Packs/Day Years [...] Time PHQ-2 Depression Total Score: 0 05/14/19 1:10 PM EST documented as of this encounter Care Teams Typesetter Perforator Operator Relationship Specialty Start Date End Date Blanca Souza RN [address] [place] [address] [email or web address] PCP - General Internal Medicine 12/02/19 08/02/20 Unknown, Danita, MD PCP - General 08/03/20 06/29/21 Lisa Batista MD [address] [place] [address] [email or web address] PCP - General Internal Medicine 06/30/21 Chicho Allred MD [address] [place] [address] [email or web address] Historical LMR Provider 01/10/17 04/02/21 Abdiel Bar MD [address] [place] [address] [email or web address] Historical LMR Provider 01/10/17 Alejo Weems MD [address] [place] [address] Orthopedics [facility] Sports Medicine, [place] [address] [email or web address] Historical LMR Provider 01/10/17 2 Abdiel Bar MD [address] [place] [address] [place] [address] [email or web address] Insurance Assigned Provider 07/27/18 07/03/20 Lisa Batista MD [address] [place] [address] [email or web address] Insurance Assigned Provider 07/03/20 04/02/21 Lisa Batista MD [address] [place] [address] [email or web address] Insurance Assigned Provider 06/30/23 documented as of this encounter Additional Source Comments The information contained in this document represents components of the legal health record. It is not the complete legal health record.[facility]
--- OUTSIDE RECORDS SUMMARY | 2025-01-28 16:07 | XMS_ITS | Encounter Summary ---
Author Organization [facility] Address [address] [facility] [address] [place] [address] Phone Care Team Providers Care Broker Assistant Name Role Phone Abdiel Bar MD Unavailable [phone] Unknown, Unknown MD Primary Care Provider James Batista, Lisa A Primary Care Provider [phone] Batista, Lisa A Unavailable [phone] Encounter Details Date Type Department Care Team (Late st Contact Info) Description 05/20/2021 Ancillary Orders [facility] Medical [facility] Orthopedics & Sports Medicine [address] [place] [address] Donna Ortega MD [address] [place] [address] Orthopedics & Sports Medicine, [facility] [place], [place] [id number] [email or web address] Social History Tobacco Use Types Packs/Day Years [...] documented as of this encounter Care Teams Broker Assistant Relationship Specialty Start Date End Date Unknown, Unknown, MD PCP - General 08/03/20 06/29/21 Lisa Batista MD [address] [place] [address] [email or web address] PCP - General Internal Medicine 06/30/21 Abdiel Bar MD [address] [place] [address] [email or web address] Historical LMR Provider 01/10/17 Lisa Batista MD [address] [place] [address] [email or web address] Insurance Assigned Provider 06/30/23 documented as of this encounter Additional Source Comments The information contained in this document represents components of the legal health record. It is not the complete legal health record.[facility]
--- OUTSIDE RECORDS SUMMARY | 2025-01-28 16:07 | XMS_ITS | Encounter Summary ---
Author Organization [facility] Address [address] [facility] [address] [place] [address] Phone Care Team Providers Care Trust And Estates Paralegal Name Role Phone Abdiel Bar MD Primary Care Provider + Chicho Allred MD Unavailable [phone] Abdiel Bar MD Unavailable [phone] Alejo Weems MD Unavailable [phone] Abdiel Bar MD Unavailable Blanca Souza RNtowboat pilot Provider [phone] Lester, Lisa A Unavailable [phone] Unknown, Unknown MD Primary Care Provider Unavasean Batista, Lisa A Primary Care Provider Lester, Lisa A Unavailable [phone] Encounter Details Date Type Department Care Team (Late st Contact Info) Description 06/14/2017 Procedure Pass [facility] [address] [facility], 2nd Floor, [address] [place] [address] Social History Tobacco Use Types Packs/Day Years Used Date Smoking Tobacco: Never Smokeless Tobacco: Never Sex and Gender Information Value Date Recorded [...] documented as of this encounter Care Teams Trust And Estates Paralegal Relationship Specialty Start Date End Date Abdiel Bar MD [email or web address] PCP - General Family Medicine 07/10/16 12/01/19 Blanca Souza RN [address] [place] [address] [email or web address] PCP - General Internal Medicine 12/02/19 08/02/20 Unknown, Danita, PCP - General 08/03/20 06/29/21 Lisa Batista MD [address] [place] [address] [email or web address] PCP - General Internal Medicine 06/30/21 Chicho Allred MD [address] [place] [address] [email or web address] Historical LMR Provider 01/10/17 04/02/21 Abdiel Bar MD [address] [place] [address] Historical LMR Provider 01/10/17 Alejo Weems MD [address] [place] [address] Orthopedics & Sports Medicine, [facility] [place] [address] [email or web address] Historical LMR Provider 01/10/17 2 Abdiel Bar MD [address] [place] [address] [email or web address] Insurance Assigned Provider 07/27/18 07/03/20 Lisa Batista MD [address] [place] [address] [email or web address] Insurance Assigned Provider 07/03/20 04/02/21 Lisa Batista MD [address] [place] [address] [email or web address] Insurance Assigned Provider 06/30/23 documented as of this encounter Additional Source Comments The information contained in this document represents components of the legal health record. It is not the complete legal health record.[facility]
--- OUTSIDE RECORDS SUMMARY | 2025-01-28 16:07 | XMS_ITS | Encounter Summary ---
Author Organization [facility] Address [address] [facility] [address] [place] [address] Phone Care Team Providers Care Hotel Engineer Name Role Phone Abdiel Bar MD Primary Care Provider + Chicho Allred MD Unavailable [phone] Abdiel Bar MD Unavailable Alejo Weems MD Unavailable [phone] Abdiel Bar MD Unavailable Blanca Souza RNsales effectiveness manager Provider [phone] Lisa Batista A Unavailable Unknown, Unknown MD Primary Care Provider UnaLisa Jenkins A Primary Care Provider [phone] Lisa Batista A Unavailable [phone] Encounter Details Date Type Department Care Team (Late st Contact Info) Description 08/25/2016 Procedure Pass [facility] [address] [facility], [address]th [place] [address] Social History Tobacco Use Types Packs/Day Years Used Date Smoking Tobacco: Never Assessed Sex and Gender Information Value Date Recorded [...] documented as of this encounter Care Teams Hotel Engineer Relationship Specialty Start Date End Date Abdiel Bar MD PCP - General Family Medicine 07/10/16 12/01/19 Blanca Souza RN [address] [place] [address] [email or web address] PCP - General Internal Medicine 12/02/19 08/02/20 Unknown, Danita, PCP - General 08/03/20 06/29/21 Lisa Batista MD [address] [place] [phone] [email or web address] PCP - General Internal Medicine 06/30/21 Chicho Allred MD [address] [place] [address] [email or web address] Historical LMR Provider 01/10/17 04/02/21 Abdiel Bar MD [address] [place] [address] [email or web address] Historical LMR Provider 01/10/17 Alejo Weems MD [address] [place] [address] Orthopedics & Sports Medicine, [facility] [place] [address] [email or web address] Historical LMR Provider 01/10/17 2 Abdiel Bar MD [address] [place] [address] [email or web address] Insurance Assigned Provider 07/27/18 07/03/20 Lisa Batista MD [address] [place] [address] [email or web address] Insurance Assigned Provider 07/03/20 04/02/21 Lisa Batista MD [address] [place] [phone] Insurance Assigned Provider 06/30/23 documented as of this encounter Additional Source Comments The information contained in this document represents components of the legal health record. It is not the complete legal health record.[facility]
--- OUTSIDE RECORDS SUMMARY | 2025-01-28 16:08 | XMS_ITS | Encounter Summary ---
Author Organization [facility] Address [address] [place] [address] Phone Care Team Providers Care Photographer Apprentice Lithographic Name Role Phone Abdiel Bar MD Unavailable [phone] Lisa Batista A Primary Care Provider [phone] Lisa Batista A Unavailable [phone] Encounter Details Date Type Department Care Team (Late st Contact Info) Description 03/13/2024 Procedure Pass [facility], [address] [place] [address] Social History Tobacco Use Types Packs/Day Years [...] filedocumented in this encounter Additional Health Concerns Assessment Noted Time PHQ-2 Depression Total Score: 0 11/28/19 24 2:31 PM EDT documented as of this encounter Care Teams Photographer Apprentice Lithographic Relationship Specialty Start Date End Date Lisa Batista MD [address] [place] [address] [email or web address] PCP - General Internal Medicine 06/30/21 Abdiel Bar MD [address] [place] [address] [email or web address] Historical LMR Provider 01/10/17 Lisa Batista MD [address] [place] [phone] [email or web address] Insurance Assigned Provider 06/30/23 documented as of this encounter Additional Source Comments The information contained in this document represents components of the legal health record. It is not the complete legal health record.[facility]
--- OUTSIDE RECORDS SUMMARY | 2025-01-28 16:08 | XMS_ITS | Clinical Summary ---
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 Active cholecalciferol (VITAMIN D3) 25 MCG (1,000 unit) tablet Take 1,000 Units by mouth daily. Active rosuvastatin (CRESTOR) 40 MG tabletIndication s:Elevated lipids TAKE 1 TABLET BY MOUTH EVERY DAY 90 tablet 3 09/12/2024 Active Active Problems Problem Noted Date Diagnosed Date Bronchiectasis without complication 06/30/2021 Peripheral vascular disease 06/30/2021 Atherosclerosis of right carotid artery 07/01/19 22 Generalized atherosclerosis 03/06/2019 Assessment & Plan (03/08/2019 10:28 AM EST): Discussed with about generalized atherosclerosis no sign of coronary disease does have carotid disease but not enough to warrant any further testing my opinion did discuss possible referral to neurology or cardiology he declinesWe will treat with Pravachol recheck lipids when he gets back from [place] [facility], loss, sudden, unspecified laterality 01/2019 Assessment & Plan (03/08/2019 10:29 AM EST): Patient would likely small vessel disease causing a TIA recommend continue aspirin and anti-statins for the anti-inflammatory effect To ER if any neuro sx Assessment & Plan (02/04/2019 7:34 AM EST): Patient with sudden visual loss does not sound like amaurosis fugax but still does not appear to be that of a visual migraine and feel we need with hyperlipidemia and age to rule out this is a TIA. Recommend going on aspirin daily and starting a statin both for its anti-inflammatory effect and its effect on lipids patient is reluctant to do with a atorvastatin so we will try pravastatin 20 mg he knows to get the blood test today and recheck in 2 months. We will also do a carotid sonograms though no bruits heard and also carotid echocardiogram. Discussed the possibility of an event monitor and/or CT scan but with a totally normal exam feels indicated unless recurs and offered neuro eval Elevated lipids 05/23/2018 Assessment & Plan (03/08/2019 10:29 AM EST): Starting pravastatin 20 due to the high elevation of his LDL and adjust dose accordingly Assessment & Plan (02/04/2019 7:34 AM EST): rec statin Assessment & Plan (05/25/2018 2:28 PM EST): Quite hi TC 279 [id number] and sasha 226 Hdl 51 urged diet last yr and and farhat to assess progress tho only risk fctor ae as dad had not premature . Pt not set agt statin as appears to be tolerating pravastatin Abnormal pulmonary finding 08/29/2016 Overview (07/15/2018): Please DO NOT TOUCH - [Kang Hernandez M.D., [facility] [place] [facility]] This category includes my synopsized data - PFT, Imaging, Micro, serologies: 05/30/18 - 25 OH Vit D 50 06/14/17 - 25 OH Vit D 24, IgG 830, IgA 145, IgM 200, SPEP normal pattern, TP 6.5, IgE 59, Alpha 1 121, RF <30, anti CCP IgG <8 Spirometry 09/09 2.7 L, 99%, 4.3 L 121%, ratio 0.62-consistent with a very mild obstructive ventilatory defect, no comparisons no bronchodilator response Bronch 06/21/18 BAL RUL - No org, Abundant RBCs, AFB smear/cx neg, no fungus RULTBBX - No org, AFB smear/ cx neg, no fungus Cytology - No malignant cells identified. Bronchial columnar cells. Neutrophils Path - Fragments of airway tissue and alveolated lung w/ focal chronic inflammation Chest CT scan 06/14/17 IMPRESSION: No focal airspace consolidations. In the right upper lobe, there is central mucus plugging seen that is unchanged since 08/25/16. If symptoms persist, consider further evaluation via bronchoscopy or follow-up CT in 6 to 12 months to assess for stability of finding. No suspicious new or enlarging pulmonary nodules. Imaging reviewed personally Chest CT today 09/09 ordered by me and reviewed images reviewed with patient today 05/12 - remarkable clearance of the plugging, proximally and distally, in the right lower lobe medial-basal segment My review of CT scan of the chest 05/12 from [facility] -diffuse mild-moderate to bronchial thickening without much ectasia. Cluster to bronchi and mucus plugging in distal right lower lobe medially, but no lingular right middle lobe or right upper lobe axillary segment disease. Right suprahilar 8 mm calcified nodule. Noncontrast CT - no obvious vessel from aorta feeding right lower lobe abnormality. Chest CT scan 08/28/16 Cp 05/05/16 IMPRESSION: Appropriate interval clearing of the RIGHT lower lobe pneumonia Mild bronchial wall thickening, with mucous plugging the RIGHT upper lobe consistent with infectious inflammatory process. No evidence of suspicious pulmonary nodules or significant bronchiectasis. GERD without esophagitis 08/25/2016 Cough 08/25/2016 Overview (12/04/2019): PAINSTAKINGLY CREATED by: Partha Hollis. (Please feel free to use one of the other 69,000 ICD10 codes rather than change this overview) : Consult 08/25/2016 for cough. 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 Recalls no residual sx such as cough, wheezing, breathing issues as child Smoked age 18 to 26 yrs, max 1/2 ppd, only cigarettes No pneumonias, no frequent colds. Coughs began ~ 10 yrs ago, starts coughing after cold sx then lingers, longest lasting 4 to 5 months, mainly dry, no hemoptysis or frequent infections or sinus infections. The curernt one began in 04/11, it has not responded to An antibiotic nor an inhaler. These episodes are lasting longer, and notices nocturnal coughing that wakes her up, and during theater tour in 06/09 he had trouble. No SOB, wheezes, nocturnal awakenings, wt loss. 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 +throat clearing that is mild but more prominent in the past few years. ETOH - occ beer or wine at night Activity - Last in [place] he was able to climb a steep mountain was SOB as the others. Exercise program - No formal exercise, able to climb 2 flights w/ packages w/o SOB GERD - No sx, caffeine 1 cup/day, Eats dinner at 7PM, Bed by 10:30PM Differential diagnosis - Persistent cough with sputum production, and focal bronchiectasis on CT that is diffuse but only mild, and notably focally abnormal in the right lower lobe. This raised the question of a possible endobronchial lesion, either from occult aspiration of a foreign body for example after his episode of orthostatic hypotension and fainting, or less likely pulmonary sequestration. Views of the esophagus did not show dilatation to suggest achalasia. I repeated a CT scan this afternoon and reviewed with patient-remarkable clearance of the proximal and distal plugging throughout the median basal segment right lower lobe, compared to 05/12 CT scan, with no overt endobronchial lesion seen, and minimal diffuse bronchial wall thickening throughout. I revised my impression to pneumonia with mucous plugging dating back to March, that appears to have cleared radiographically, and overall would fit best with a pneumonia that responded to the antibiotic course, but a lingering postinfectious cough. Thus his current cough is a prolonged postinfectious cough, a multifactorial cough from GERD (mainly silent), postn drip, triggered by Head cold/ URI - he admits that, as in the past, it is slowly getting better on its own, without benefit from antibiotics or inhaler. Very mild obstructive ventilatory defect is not easily explained except for the very mild smoking history, without history of atopy, but may reflect a mild diffuse bronchiectasis. I laid out his options 1. do nothing regarding his improving multifactorial cough-his general preference 2. Trial of omeprazole (Prilosec) 1 pill twice a day for 3 weeks, then taper to one pill leaving for 3 weeks then stop 3. Trial of nasal rinses ==Early call/presentation with any significant head or chest infection == will have our thoracic radiologists review the scans == Very low threshold for bronchoscopy,stiven focusing on the RLL to exclude an endobronchial lesion in that location, to obtain cultures especially for bronchiectasis pathogens and mycobacteria. == Defer serologies at present eg Serologies including SPEP, IgE, RF, mmlxe-7-tvvjarnunuo level, CBC/diff stiven eos. == Defer bronchial hygeine for now 06/14/2017 Appt followup prolonged postinfectious cough w CT that revealed plugging and bronchiectasis At least one lingering cough for many weeks, rarely productive, most mornings then clears. Spirometry similar to prior - FEV1 95% mild obstructive ventilatory defect DX # Bronchiectasis w RLL pneumonia 05/[address] showing RUL low density plugging, with no definite predisposition except TB age 4 in [place] [facility], lingering AM cough through 06/10 == Serologies including SPEP, IgE, RF, queph-7-woqumzqvwwu level, CBC/diff stiven eosinophils == low threshold for Bronch/BAL # Lingering multifactorial cough that should be due to the typical combination of GERD (mainly silent), postn drip, and atopy, but without atopy and having failed prior bronchodilators, and 2017 trials from [place] w PPI/ Sino-nasal rinses then Sino-nasal rinses 03/11. 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 Bronchodilator not needed at present, and had failed in the past for the cough. These coughs have been lingering more since at least 2015-. I cannot quite exclude the possibility of an airway lesion in the RUL bronchus that leads to bronchial hyperresponsiveness (BHR). == review Chest CT w thoracic radiology == in the event of a lingering prolonged postinfectious cough, would ck sputum, and try Sino-nasal rinses and Fluticasone 02/07/2018 Appt followup Back from [facility] respiratory infections, then he and have had lingering cough for many weeks, rarely productive, most mornings then clears. Spirometry similar to prior - FEV1 95% mild obstructive ventilatory defect DX # Bronchiectasis w RLL pneumonia 05/[address] showing RUL low density plugging, with no definite predisposition except TB age 4 in [facility] [place] [facility], lingering AM cough through 06/10 and 02/10. I reviewed again extensively with him and his my concern that the RUL plugging was persistent and could be a lung CA, or bronchial adenoma, and recommended bronch. He declined, courteously, and we will review repeat Chest CT == Chest CT at 6 mo w virtual bronch - reviewed w him that this would not get micro specimens == Serologies including SPEP, IgE, RF, jelah-6-baiguqateci level, CBC/diff stiven eosinophils == low threshold for Bronch/BAL # Lingering multifactorial cough that should be due to the typical combination of GERD (mainly silent), postn drip, and atopy, but without atopy and having failed prior bronchodilators, and 2017 trials from [place] w PPI/ Sino-nasal rinses then Sino-nasal rinses 03/11. 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 Bronchodilator not needed at present, and had failed in the past for the cough. These coughs have been lingering more since at least 2015-. I cannot quite exclude the possibility of an airway lesion in the RUL bronchus that leads to bronchial hyperresponsiveness (BHR). == in the event of a lingering prolonged postinfectious cough, would ck sputum, and try Sino-nasal rinses and Fluticasone 05/30/2018 Appt followup 01/10 lingering cough, especially after return from [facility] respiratory infections, cough for many weeks, rarely productive, most mornings then clears. Today Head cold/ URI x 1 wk, no sputum. Spirometry 06/11 down 10% 2.3- 2.5L, 97% / 3.8- 4.0L 115%, .61 prior 2.6/ 4.3L DX # Bronchiectasis w RLL pneumonia 05/[address] showing RUL low density plugging, with no definite predisposition except TB [place] 4 [place], lingering AM cough through 06/10 and 02/10, then 06/11 again a cold . I reviewed again extensively with him and his my concern that the RUL plugging was proven to be persistent and could be a lung CA, or bronchial adenoma, and recommended bronch. He declined, courteously in fall 2017, but now agrees 06/11. He had many TB exposures in the camps, and family though this doesn't look like active T it could be scarring. Serologies including SPEP, IgE, RF, aofak-5-kfwvtmcputw level, CBC/diff stiven eosinophils were normal. == bronch by IP given complexity, for airway exam RUL and for culture, Charcot- Leyden crystals # Lingering multifactorial cough that should be due to the typical combination of GERD (mainly silent), postn drip, and atopy, but without atopy and having failed prior bronchodilators, and 2017 trials from [place] w PPI/ Sino-nasal rinses then Sino-nasal rinses 03/11. 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 Bronchodilator not needed at present, and had failed in the past for the cough. These coughs have been lingering more since at least 2015-. I cannot quite exclude the possibility of an airway lesion in the RUL bronchus that leads to bronchial hyperresponsiveness (BHR). == in the event of a lingering prolonged postinfectious cough, would ck sputum, and try Sino-nasal rinses and Fluticasone Bronch/BAL 06/21/18 - Amber Coates - no endobronchial lesions, Bx and cytology neg, cx [facility] 07/15/2018 Appt followup Cough gone post bronch, original report 01/10 lingering cough, especially after return from [place], [facility] respiratory infections. Spirometry 06/11 down 10% 2.3- 2.5L, 97% / 3.8- 4.0L 115%, .61 prior 2.6/ 4.3L DX # Bronchiectasis w RLL pneumonia 05/[address] showing RUL low density plugging, with no definite predisposition except TB age 4 in [place] [facility], lingering AM cough through 06/10 and 02/10, then 06/11 again a cold . Hence my concern that the RUL plugging could be due to scarring or harbor a chronic infection, but fortunately Bronch/BAL 06/21/18 including navigational by Amber Coates was neg by airway exam and cultures thus far, and PATH:. He had many TB exposures in the camps, and family though this doesn't look like active T it could be scarring. Serologies including SPEP, IgE, RF, nzqlt-0-dyabwdgtsvc level, CBC/diff stiven eosinophils were normal. Very negative bronch results were reassuring, as I reviewed with him. == will request citibuddies review == await final cx # Recurrent pneumonias # Lingering multifactorial cough that should be due to the typical combination of GERD (mainly silent), postn drip, and atopy, but without atopy and having failed prior bronchodilators, and 2017 trials from [place] w PPI/ Sino-nasal rinses then Sino-nasal rinses 03/11. 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 Bronchodilator not needed at present, and had failed in the past for the cough. These coughs have been lingering more since at least 2015- == in the event of a lingering prolonged postinfectious cough, would ck sputum, and try Sino-nasal rinses and Fluticasone 02/06/2019 Appt followup Cough gone, usual minimal throat-clearing, original report 01/10 lingering cough, especially after return from [place], [facility] respiratory infections. Spirometry 02/11 2.7-2.8L, 105% 4.2L, 120% .64, 06/11 down 10% 2.3- 2.5L, 97% / 3.8- 4.0L 115%, .61 prior 2.6/ 4.3L DX # Bronchiectasis w RLL pneumonia 05/[address] showing RUL low density plugging, with no definite predisposition except TB age 4 in [place], lingering AM cough through 06/10 and 02/10, then 06/11 again a cold . Hence my concern that the RUL plugging could be due to scarring or harbor a chronic infection, but fortunately Bronch/BAL 06/21/18 including navigational by Amber Coates was neg by airway exam and cultures and cytology neg. He had many TB exposures in the camps, and family though this doesn't look like active T it could have been scarring. Serologies including SPEP, IgE, RF, sixuy-6-pclparhfdde level, CBC/diff stiven eosinophils were normal. Very negative bronch results were reassuring, as I reviewed with him. 02/11 Appt - Spirometry back up especially FEV1 to 2.7L, from 2.3L, no significant cough beyond throat-clearing # Recurrent pneumonias # RUL plugging - Bronch/BAL navigational via EF neg 06/11 when FEV1 was also down == followup PRN # Lingering multifactorial cough that should be due to the typical combination of GERD (mainly silent), postn drip, and atopy, but without atopy and having failed prior bronchodilators, and 2017 trials from [place] w PPI/ Sino-nasal rinses then Sino-nasal rinses 03/11. 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 Bronchodilator not needed at present, and had failed in the past for the cough. These coughs have been lingering more since at least 2015- == in the event of a lingering prolonged postinfectious cough, would ck sputum, and try Sino-nasal rinses and Fluticasone 12/04/2019 Pulmonary Telemedicine Visit Fine in [place], exc pain rt shoulder - statin vs arthritis Cough gone, not even his usual minimal throat-clearing, original report 01/10 lingering cough, especially after return from [facility] - no exposures so no respiratory infections. No exertional dyspnea or other respiratory/ systemic symptoms, ROS otherwise negative on full review Spirometry 02/11 2.7-2.8L, 105% 4.2L, 120% .64, 06/11 down 10% 2.3- 2.5L, 97% / 3.8- 4.0L 115%, .61 prior 2.6/ 4.3L DX # Bronchiectasis w RLL pneumonia 05/[address] showing RUL low density plugging, with no definite predisposition except TB age 4 in [place] [facility], lingering AM cough through 06/10 and 02/10, then 06/11 again a cold . Hence my concern that the RUL plugging could be due to scarring or harbor a chronic infection, but fortunately Bronch/BAL 06/21/18 including navigational by Amber Coates was neg by airway exam and cultures and cytology neg. He had many TB exposures in the [place], and family though this doesn't look like active T it could have been scarring. Serologies including SPEP, IgE, RF, eesdl-1-pyoiopxsaap level, CBC/diff stiven eosinophils were normal. Very negative bronch results were reassuring, as I reviewed with him. 02/11 Appt - Spirometry back up especially FEV1 to 2.7L, from 2.3L, no significant cough beyond throat-clearing # Recurrent pneumonias # RUL plugging - Bronch/BAL navigational via EF neg 06/11 when FEV1 was also down == followup PRN # Lingering multifactorial cough that should be due to the typical combination of GERD (mainly silent), postn drip, and atopy, but without atopy and having failed prior bronchodilators, and 2017 trials from [place] w PPI/ Sino-nasal rinses then Sino-nasal rinses 03/11. 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 Bronchodilator not needed at present, and had failed in the past for the cough. These coughs were lingering more since at least 2015-12/13 Pulmonary Telemedicine Visit - no cough at all, admitting to minor GERD ? Statin, no postnasal drip == in the event of a lingering prolonged postinfectious cough, would ck sputum, and try Sino-nasal rinses and Fluticasone 12/04/2019 Pulmonary Telemedicine Visit Fine in [place], exc pain rt shoulder - statin vs arthritis Cough gone, not even his usual minimal throat-clearing, original report 01/10 lingering cough, especially after return from [facility] - no exposures so no respiratory infections. No exertional dyspnea or other respiratory/ systemic symptoms, ROS otherwise negative on full review Spirometry 02/11 2.7-2.8L, 105% 4.2L, 120% .64, 06/11 down 10% 2.3- 2.5L, 97% / 3.8- 4.0L 115%, .61 prior 2.6/ 4.3L DX # Bronchiectasis w RLL pneumonia 05/[address] showing RUL low density plugging, with no definite predisposition except TB age 4 in [place], lingering AM cough through 06/10 and 02/10, then 06/11 again a cold . Hence my concern that the RUL plugging could be due to scarring or harbor a chronic infection, but fortunately Bronch/BAL 06/21/18 including navigational by Amber Coates was neg by airway exam and cultures and cytology neg. He had many TB exposures in the [place], and family though this doesn't look like active T it could have been scarring. Serologies including SPEP, IgE, RF, dueko-9-xamaprbertp level, CBC/diff stiven eosinophils were normal. Very negative bronch results were reassuring, as I reviewed with him. 02/11 Appt - Spirometry back up especially FEV1 to 2.7L, from 2.3L, no significant cough beyond throat-clearing # Recurrent pneumonias # RUL plugging - Bronch/BAL navigational via EF neg 06/11 when FEV1 was also down == followup PRN # Lingering multifactorial cough that should be due to the typical combination of GERD (mainly silent), postn drip, and atopy, but without atopy and having failed prior bronchodilators, and 2017 trials from [place] w PPI/ Sino-nasal rinses then Sino-nasal rinses 03/11. 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 Bronchodilator not needed at present, and had failed in the past for the cough. These coughs were lingering more since at least 2015-12/13 Pulmonary Telemedicine Visit - no cough at all, admitting to minor GERD ? Statin, no postnasal drip Chest CT last 06/11 prior to Bronch/BAL - showed only the plugging so no role for serial scans == in the event of a lingering prolonged postinfectious cough, would ck sputum, and try Sino-nasal rinses and Fluticasone Assessment & Plan (10/23/2023 4:14 PM EDT): 10/23/2023 Pulmonary Visit Back surgery helped. COVID-19 in 4-5 wk ago, precipitated a cough for several weeks, COVID-19 neg. Cough remains gone, not even his usual minimal throat-clearing No recent infections, sputum, hemoptysis, fevers, sweats, chest pain, leg edema [facility] in [place] and in [place], 5-12 Exercise - walking more after recovering from diskectomy 2 wk ago No exertional dyspnea or other respiratory/ systemic symptoms, ROS otherwise negative on full review Spirometry w/in range - 10/16 2.5, 104%, 4.3, 133%, .58 12/15 2.6, 104%, 4.2, 123%, .63 v stable 02/11 2.7-2.8L, 105% 4.2L, 120% .64, 06/11 down 10% 2.3- 2.5L, 97% / 3.8- 4.0L 115%, .61 prior 2.6/ 4.3L DX # Bronchiectasis w recurrent pneumonias, including RLL pneumonia 05/[address] showing RUL low density plugging, with no definite predisposition except TB age 4 in [place] [facility], lingering AM cough through 06/10 and 02/10, then 06/11 again a cold . Hence my concern that the RUL plugging could be due to scarring or harbor a chronic infection, but fortunately # RUL plugging - Bronch/BAL navigational via EF neg 06/11 when FEV1 was also down Bronch/BAL 06/21/18 including navigational by Amber Coates was neg by airway exam and cultures and cytology neg. He had many TB exposures in the [place], and family though this doesn't look like active T it could have been scarring. Serologies including SPEP, IgE, RF, hhquf-4-qhewcrhnqhl level, CBC/diff stiven eosinophils were normal. Very negative bronch results were reassuring, as I reviewed with him. 02/11 Appt - Spirometry back up especially FEV1 to 2.7L, from 2.3L, no significant cough beyond throat-clearing 12/15 Appt - v stable Spirometry, tolerated COVID-19 in [place] in the spring without tx, no exacerbation COVID-19 exposure August 2023 from 10/16 Appt - brief lingering cough after 's COVID-19, he tested neg and cough remitted, Spirometry v stable, no other infections or new problems == vigilance for protracted cough that might benefit from Sino-nasal rinses and Fluticasone, and if purulent, possibly antibiotic == followup CT chest PRN # Lingering multifactorial cough that should be due to the typical combination of GERD (mainly silent), postn drip, and atopy, but without atopy and having failed prior bronchodilators, and 2017 trials from [place] w PPI/ Sino-nasal rinses then Sino-nasal rinses 03/11. 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 Bronchodilator not needed at present, and had failed in the past for the cough. These coughs were lingering more since at least 2015-12/13 Pulmonary Telemedicine Visit - no cough at all, admitting to minor GERD ? 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, parents told him but he didn't recall, no antibiotics or meds, had measles Assessment & Plan (12/01/2021 1:23 PM EDT): 12/01/2021 Pulmonary Visit COVID-19 in spring while in [place], recovered fine without tx, cough gone Fine in [place], improved pain rt shoulder Cough remain gone, not even his usual minimal throat-clearing Gch in [place] and in [place], Exercise - walking, limited by back pain but improving both No exertional dyspnea or other respiratory/ systemic symptoms, ROS otherwise negative on full review Spirometry 12/15 2.6, 104%, 4.2, 123%, .63 v stable 02/11 2.7-2.8L, 105% 4.2L, 120% .64, 06/11 down 10% 2.3- 2.5L, 97% / 3.8- 4.0L 115%, .61 prior 2.6/ 4.3L DX # Bronchiectasis w RLL pneumonia 05/[address] showing RUL low density plugging, with no definite predisposition except TB age 4 [place], lingering AM cough through 06/10 and 02/10, then 06/11 again a cold . Hence my concern that the RUL plugging could be due to scarring or harbor a chronic infection, but fortunately Bronch/BAL 06/21/18 including navigational by Amber Coates was neg by airway exam and cultures and cytology neg. He had many TB exposures in the camps, and family though this doesn't look like active T it could have been scarring. Serologies including SPEP, IgE, RF, lppdr-6-slpxkpkhioh level, CBC/diff stiven eosinophils were normal. Very negative bronch results were reassuring, as I reviewed with him. 02/11 Appt - Spirometry back up especially FEV1 to 2.7L, from 2.3L, no significant cough beyond throat-clearing 12/15 Appt - v stable Spirometry, tolerated COVID-19 in [place] in the spring without tx, no exacerbation # Recurrent pneumonias # RUL plugging - Bronch/BAL navigational via EF neg 06/11 when FEV1 was also down == followup PRN # Lingering multifactorial cough that should be due to the typical combination of GERD (mainly silent), postn drip, and atopy, but without atopy and having failed prior bronchodilators, and 2017 trials from [place] w PPI/ Sino-nasal rinses then Sino-nasal rinses 03/11. 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 Bronchodilator not needed at present, and had failed in the past for the cough. These coughs were lingering more since at least 2015-12/13 Pulmonary Telemedicine Visit - no cough at all, admitting to minor GERD ? Statin, no postnasal drip Chest CT last 06/11 prior to Bronch/BAL - showed only the plugging so no role for serial scans 12/01/2021 Appt - no cough at all == in the event of a lingering prolonged postinfectious cough, would ck sputum, and try Sino-nasal rinses and Fluticasone Assessment & Plan (11/30/2020 2:39 PM EDT): 11/30/2020 Pulmonary Visit Still remarkably well in the setting of COVID-19 precautions Fine in [place], exc pain rt shoulder - statin vs arthritis persists, s/p Rt [facility] Cough remain gone, not even his usual minimal throat-clearing, Gch - no exposures so no respiratory infections. No exertional dyspnea or other respiratory/ systemic symptoms, ROS otherwise negative on full review Spirometry 02/11 2.7-2.8L, 105% 4.2L, 120% .64, 06/11 down 10% 2.3- 2.5L, 97% / 3.8- 4.0L 115%, .61 prior 2.6/ 4.3L DX # Bronchiectasis w RLL pneumonia 05/[address] showing RUL low density plugging, with no definite predisposition except TB age 4 in [employer], lingering AM cough through 06/10 and 02/10, then 06/11 again a cold . Hence my concern that the RUL plugging could be due to scarring or harbor a chronic infection, but fortunately Bronch/BAL 06/21/18 including navigational by Amber Coates was neg by airway exam and cultures and cytology neg. He had many TB exposures in the camps, and family though this doesn't look like active T it could have been scarring. Serologies including SPEP, IgE, RF, ojmil-4-rjtfnkwypbl level, CBC/diff stiven eosinophils were normal. Very negative bronch results were reassuring, as I reviewed with him. 02/11 Appt - Spirometry back up especially FEV1 to 2.7L, from 2.3L, no significant cough beyond throat-clearing # Recurrent pneumonias # RUL plugging - Bronch/BAL navigational via EF neg 06/11 when FEV1 was also down == followup PRN # Lingering multifactorial cough that should be due to the typical combination of GERD (mainly silent), postn drip, and atopy, but without atopy and having failed prior bronchodilators, and 2017 trials from [place] w PPI/ Sino-nasal rinses then Sino-nasal rinses 03/11. 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 Bronchodilator not needed at present, and had failed in the past for the cough. These coughs were lingering more since at least 2015-12/13 Pulmonary Telemedicine Visit - no cough at all, admitting to minor GERD ? Statin, no postnasal drip Chest CT last 06/11 prior to Bronch/BAL - showed only the plugging so no role for serial scans 12/14 Appt - no cough at all == in the event of a lingering prolonged postinfectious cough, would ck sputum, and try Sino-nasal rinses and Fluticasone Assessment & Plan (12/04/2019 1:26 PM EDT): 12/04/2019 Pulmonary Telemedicine Visit Fine in [place], exc pain rt shoulder - statin vs arthritis Cough gone, not even his usual minimal throat-clearing, original report 01/10 lingering cough, especially after return from [place], [facility] - no exposures so no respiratory infections. No exertional dyspnea or other respiratory/ systemic symptoms, ROS otherwise negative on full review Spirometry 02/11 2.7-2.8L, 105% 4.2L, 120% .64, 06/11 down 10% 2.3- 2.5L, 97% / 3.8- 4.0L 115%, .61 prior 2.6/ 4.3L DX # Bronchiectasis w RLL pneumonia 05/[address] showing RUL low density plugging, with no definite predisposition except TB age 4 in [place] [employer], lingering AM cough through 06/10 and 02/10, then 06/11 again a cold . Hence my concern that the RUL plugging could be due to scarring or harbor a chronic infection, but fortunately Bronch/BAL 06/21/18 including navigational by Amber Coates was neg by airway exam and cultures and cytology neg. He had many TB exposures in the [place], and family though this doesn't look like active T it could have been scarring. Serologies including SPEP, IgE, RF, otuqf-7-frxlgaysjhq level, CBC/diff stiven eosinophils were normal. Very negative bronch results were reassuring, as I reviewed with him. 02/11 Appt - Spirometry back up especially FEV1 to 2.7L, from 2.3L, no significant cough beyond throat-clearing # Recurrent pneumonias # RUL plugging - Bronch/BAL navigational via EF neg 06/11 when FEV1 was also down == followup PRN # Lingering multifactorial cough that should be due to the typical combination of GERD (mainly silent), postn drip, and atopy, but without atopy and having failed prior bronchodilators, and 2017 trials from me w PPI/ Sino-nasal rinses then Sino-nasal rinses 03/11. 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 Bronchodilator not needed at present, and had failed in the past for the cough. These coughs were lingering more since at least 2015-12/13 Pulmonary Telemedicine Visit - no cough at all, admitting to minor GERD ? Statin, no postnasal drip Chest CT last 06/11 prior to Bronch/BAL - showed only the plugging so no role for serial scans == in the event of a lingering prolonged postinfectious cough, would ck sputum, and try Sino-nasal rinses and Fluticasone Assessment & Plan (02/06/2019 2:14 PM EST): 02/06/2019 Appt followup Cough gone, usual minimal throat-clearing, original report 01/10 lingering cough, especially after return from [place], [facility] respiratory infections. Spirometry 02/11 2.7-2.8L, 105% 4.2L, 120% .64, 06/11 down 10% 2.3- 2.5L, 97% / 3.8- 4.0L 115%, .61 prior 2.6/ 4.3L DX # Bronchiectasis w RLL pneumonia 05/[address] showing RUL low density plugging, with no definite predisposition except TB age 4 [place] [facility] [employer] [facility], lingering AM cough through 06/10 and 02/10, then 06/11 again a cold . Hence my concern that the RUL plugging could be due to scarring or harbor a chronic infection, but fortunately Bronch/BAL 06/21/18 including navigational by Amber Coates was neg by airway exam and cultures and cytology neg. He had many TB exposures [place], and family though this doesn't look like active T it could have been scarring. Serologies including SPEP, IgE, RF, maelt-3-bokemmuwyds level, CBC/diff stiven eosinophils were normal. Very negative bronch results were reassuring, as I reviewed with him. 02/11 Appt - Spirometry back up especially FEV1 to 2.7L, from 2.3L, no significant cough beyond throat-clearing # Recurrent pneumonias # RUL plugging - Bronch/BAL navigational via EF neg 06/11 when FEV1 was also down == followup PRN # Lingering multifactorial cough that should be due to the typical combination of GERD (mainly silent), postn drip, and atopy, but without atopy and having failed prior bronchodilators, and 2017 trials from [place] w PPI/ Sino-nasal rinses then Sino-nasal rinses 03/11. 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 Bronchodilator not needed at present, and had failed in the past for the cough. These coughs have been lingering more since at least 2015- == in the event of a lingering prolonged postinfectious cough, would ck sputum, and try Sino-nasal rinses and Fluticasone Assessment & Plan (07/15/2018 1:18 PM EDT): 07/15/2018 Appt followup Cough gone post bronch, original report 01/10 lingering cough, especially after return from [facility] respiratory infections. Spirometry 06/11 down 10% 2.3- 2.5L, 97% / 3.8- 4.0L 115%, .61 prior 2.6/ 4.3L DX # Bronchiectasis w RLL pneumonia 05/[address] showing RUL low density plugging, with no definite predisposition except TB age 4 in [place], lingering AM cough through 06/10 and 02/10, then 06/11 again a cold . Hence my concern that the RUL plugging could be due to scarring or harbor a chronic infection, but fortunately Bronch/BAL 06/21/18 including navigational by Amber Coates was neg by airway exam and cultures thus far, and PATH:. He had many TB exposures [place], and family though this doesn't look like active T it could be scarring. Serologies including SPEP, IgE, RF, thwvs-3-szqigyqftuz level, CBC/diff stiven eosinophils were normal. Very negative bronch results were reassuring, as I reviewed with him. == will request Charcot-Leyden crystal review == await final cx # Recurrent pneumonias # Lingering multifactorial cough that should be due to the typical combination of GERD (mainly silent), postn drip, and atopy, but without atopy and having failed prior bronchodilators, and 2017 trials from [place] w PPI/ Sino-nasal rinses then Sino-nasal rinses 03/11. 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 Bronchodilator not needed at present, and had failed in the past for the cough. These coughs have been lingering more since at least 2015- == in the event of a lingering prolonged postinfectious cough, would ck sputum, and try Sino-nasal rinses and Fluticasone Assessment & Plan (05/30/2018 5:35 PM EST): 05/30/2018 Appt followup 01/10 lingering cough, especially after return [place], [facility] respiratory infections, cough for many weeks, rarely productive, most mornings then clears. Today Head cold/ URI x 1 wk, no sputum. Spirometry 06/11 down 10% 2.3- 2.5L, 97% / 3.8- 4.0L 115%, .61 prior 2.6/ 4.3L DX # Bronchiectasis w RLL pneumonia 05/[address] showing RUL low density plugging, with no definite predisposition except TB age 4 in [place] [facility], lingering AM cough through 06/10 and 02/10, then 06/11 again a cold . I reviewed again extensively with him and his my concern that the RUL plugging was proven to be persistent and could be a lung CA, or bronchial adenoma, and recommended bronch. He declined, courteously in fall 2017, but now agrees 06/11. He had many TB exposures in [place], and family though this doesn't look like active T it could be scarring. Serologies including SPEP, IgE, RF, aogaa-4-ysblcefcrao level, CBC/diff stiven eosinophils were normal. == bronch by IP given complexity, for airway exam RUL and for culture, Charcot- Leyden crystals # Lingering multifactorial cough that should be due to the typical combination of GERD (mainly silent), postn drip, and atopy, but without atopy and having failed prior bronchodilators, and 2017 trials from [place] w PPI/ Sino-nasal rinses then Sino-nasal rinses 03/11. 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 Bronchodilator not needed at present, and had failed in the past for the cough. These coughs have been lingering more since at least 2015-. I cannot quite exclude the possibility of an airway lesion in the RUL bronchus that leads to bronchial hyperresponsiveness (BHR). == in the event of a lingering prolonged postinfectious cough, would ck sputum, and try Sino-nasal rinses and Fluticasone Assessment & Plan (05/25/2018 2:25 PM EST): Chr cough not severe and reviewed Pulm note focal bronchiectasisi and ? Lesion. Sees Q6 mnths Assessment & Plan (02/07/2018 9:56 PM EST): 02/07/2018 Appt followup Back from [place], [facility] respiratory infections, then he and have had lingering cough for many weeks, rarely productive, most mornings then clears. Spirometry similar to prior - FEV1 95% mild obstructive ventilatory defect DX # Bronchiectasis w RLL pneumonia 05/[address] showing RUL low density plugging, with no definite predisposition except TB [place] 4 [facility] [place], lingering AM cough through 06/10 and 02/10. I reviewed again extensively with him and his my concern that the RUL plugging was persistent and could be a lung CA, or bronchial adenoma, and recommended bronch. He declined, courteously, and we will review repeat Chest CT == Chest CT at 6 mo w virtual bronch - reviewed w him that this would not get micro specimens == Serologies including SPEP, IgE, RF, emmqn-7-wjiyaejxqth level, CBC/diff stiven eosinophils == low threshold for Bronch/BAL # Lingering multifactorial cough that should be due to the typical combination of GERD (mainly silent), postn drip, and atopy, but without atopy and having failed prior bronchodilators, and 2017 trials from [place] w PPI/ Sino-nasal rinses then Sino-nasal rinses 03/11. 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 Bronchodilator not needed at present, and had failed in the past for the cough. These coughs have been lingering more since at least . I cannot quite exclude the possibility of an airway lesion in the RUL bronchus that leads to bronchial hyperresponsiveness (BHR). == in the event of a lingering prolonged postinfectious cough, would ck sputum, and try Sino-nasal rinses and Fluticasone Assessment & Plan (06/14/2017 6:28 PM EDT): 06/14/2017 Appt followup prolonged postinfectious cough w CT that revealed plugging and bronchiectasis At least one lingering cough for many weeks, rarely productive, most mornings then clears. Spirometry similar to prior - FEV1 95% mild obstructive ventilatory defect DX # Bronchiectasis w RLL pneumonia 05/[address] showing RUL low density plugging, with no definite predisposition except TB age 4 in [facility], lingering AM cough through 06/10 == Serologies including SPEP, IgE, RF, qgzej-4-xkvtuyostbv level, CBC/diff stiven eosinophils == low threshold for Bronch/BAL # Lingering multifactorial cough that should be due to the typical combination of GERD (mainly silent), postn drip, and atopy, but without atopy and having failed prior bronchodilators, and 2017 trials from [place] w PPI/ Sino-nasal rinses then Sino-nasal rinses 03/11. 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 Bronchodilator not needed at present, and had failed in the past for the cough. These coughs have been lingering more since at least . I cannot quite exclude the possibility of an airway lesion in the RUL bronchus that leads to bronchial hyperresponsiveness (BHR). == review Chest CT w thoracic radiology == in the event of a lingering prolonged postinfectious cough, would ck sputum, and try Sino-nasal rinses and Fluticasone Assessment & Plan (08/25/2016 5:06 PM EDT): Differential diagnosis - Persistent cough with sputum production, and focal bronchiectasis on CT that is diffuse but only mild, and notably focally abnormal in the right lower lobe. This raised the question of a possible endobronchial lesion, either from occult aspiration of a foreign body for example after his episode of orthostatic hypotension and fainting, or less likely pulmonary sequestration. Views of the esophagus did not show dilatation to suggest achalasia. I repeated a CT scan this afternoon and reviewed with patient-remarkable clearance of the proximal and distal plugging throughout the median basal segment right lower lobe, compared to 05/12 CT scan, with no overt endobronchial lesion seen, and minimal diffuse bronchial wall thickening throughout. I revised my impression to pneumonia with mucous plugging came back to March, that appears to have cleared radiographically, and overall would fit best with a pneumonia that responded to the antibiotic course, but a lingering postinfectious cough. Thus his current cough is a prolonged postinfectious cough, a multifactorial cough from GERD (mainly silent), postn drip, triggered by Head cold/ URI - he admits that, as in the past, it is slowly getting better on its own, without benefit from antibiotics or inhaler. Very mild obstructive ventilatory defect is not easily explained except for the very mild smoking history, without history of atopy, but may reflect a mild diffuse bronchiectasis. I laid out his options 1. do nothing regarding his improving multifactorial cough-his general preference 2. Trial of omeprazole (Prilosec) 1 pill twice a day for 3 weeks, then taper to one pill leaving for 3 weeks then stop 3. Trial of nasal rinses ==Early call/presentation with any significant head or chest infection == will have our thoracic radiologists review the scans == Very low threshold for bronchoscopy,stiven focusing on the RLL to exclude an endobronchial lesion in that location, to obtain cultures especially for bronchiectasis pathogens and mycobacteria. == Defer serologies at present eg Serologies including SPEP, IgE, RF, oubzp-7-vytkpybokvr level, CBC/diff stiven eos. == Defer bronchial hygeine for now Abnormal CT of the chest 08/25/2016 Resolved Problems Problem Noted Date Diagnosed Date Resolved Date Annual physical exam 05/23/2018 022 Assessment & Plan (05/25/2018 2:23 PM EST): Doing well still working and UTD all shots incl shingrex and not exercising tho walks . No depression nor BPH sx and reg eye exam wo glaucoma Discussed HCP and MOLST forms Encounters Date Type Department Care Team Description 01/08/2025 2:00 PM EDT Office Visit [address] [place] [id number] Lisa Batista MD Bradycardia (Primary Dx); Episodic lightheadedness 01/08/2025 Orders Only [address] [place] [address] Lisa Batista MD Bradycardia from Last 3 Months Immunizations Immunization Administration Dates Next Due COVID-19 (Pre-01/15) Pfizer Vaccine, mRNA, PF 12/17/2020,05/01/2020,04/10/2020 INFLUENZA, SPLIT VIRUS, TRIV ALENT W/ PRESERVATIVE IM 12/20/2015,01/16/2011,02/25/2009,03/15,04/06/2003 Influenza High-Dose Quadriva lent Preservative Free IM 12/28/2021,12/16/2019 Influenza High-Dose Trivalen t Preservative Free IM 11/28/2023,12/09/2018,12/23/2017,12/24,12/22/2016 Influenza Quadrivalent Adjuv anted Preservative Free IM 12/26/2022,12/28/2020 Influenza, Unspecified Formulation 12/30/2021,,12/16/2019 Influenza, whole 12/01/2014 Pneumococcal conjugate PCV20 10/05/2021 Pneumococcal polysaccharide PPSV23 03/12/2018, RSV Vaccine (monovalent, adjuvanted) 01/25/2023 Td, unspecified formulation 05/29/2005 Tdap 09/01/2015 Zoster live 07/31/2006 Zoster recombinant 07/31/2017,05/14/2017 Family History Medical History Relation Comments Bladder Cancer Brother CV disease Father Cancer Mother bladder Carotid stenosis Mother Relation Status Comments Brother Alive Father Mother Social History Tobacco Use Types Packs/Day Years Used Date Smoking Tobacco: Former Cigarettes 0.5 10 1 960 - 1970 Smokeless Tobacco: Never Tobacco Cessation:Counseling Given: Not Answered Comments:As a teenager for a few years [...] Orientation Straight 11/28/2020 12 :19 PM EDT Last Filed Vital Signs Vital Sign Reading Time Taken Comments Blood Pressure 136/82 01/08/2025 1:50 PM EDT Pulse 52 01/08/2025 1:50 PM EDT Temperature 36.4 C (97.5 F) 10/22/2024 1:08 PM EDT Respiratory Rate 16 12/01/2021 1:03 PM EDT Oxygen Saturation 100% 01/08/2025 1:50 PM EDT Inhaled Oxygen Concentration - - Weight 62.1 kg (137 lb) 01/08/2025 1:50 PM EDT Height 167 cm (5' 5.75 ) 11/28/2023 2:26 PM EDT Body Mass Index 22.28 11/28/2023 2:26 PM EDT Plan of Treatment Health Maintenance Due Date Last Done Comments INFLUENZA VACCINE (#1) 2024 , 12/26/2022, 12/26/2022, Additional history exists COVID-19 VACCINE (2024- season) 2024 12/25/2023, 12/26/2022, 07/15/2022, Additional history exists Adult Td,Tdap Booster 08/31/2025 09/01/2015, 006 DEPRESSION SCREENING 01/08/2026 01/08/2025 ZOSTER VACCINES Completed 07/31/2017, 04/26, 07/31/2006 PNEUMOCOCCAL VACCINES (50+ years) Completed 10/05/2021, 03/12/2018, 10/08/2007 RSV VACCINE Completed 01/25/2023 HEPATITIS A VACCINES Aged Out No long er eligible based on patient's age to complete this topic HIB VACCINES Aged Out No longer eligi ble based on patient's age to complete this topic MENINGOCOCCAL VACCINES (ACWY) Aged Out No longer eligible based on patient's age to complete this topic MENINGOCOCCAL VACCINES (B) Aged Out N o longer eligible based on patient's age to complete this topic Medical Devices Not on file Insurance MEDICARE PART A & B [facility] MEDICARE SUPPLEMENT MEDICARE PART A & B [employer] MEDICARE SUPPLEMENT MEDICARE PART A & B [employer] MEDICARE SUPPLEMENT MEDICARE PART A & B [facility] MEDICARE SUPPLEMENT MEDICARE PART A & B [facility] MEDICARE SUPPLEMENT MEDICARE PART A & B [facility] MEDICARE SUPPLEMENT MEDICARE PART A & B [facility] MEDICARE SUPPLEMENT MEDICARE PART A & B [facility] MEDICARE SUPPLEMENT MEDICARE PART A & B [facility] MEDICARE SUPPLEMENT 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 It is not the complete legal health record.[facility]
--- OUTSIDE RECORDS SUMMARY | 2025-01-28 16:08 | XMS_ITS | Encounter Summary ---
Author Organization [facility] Address [address] [place] [address] Phone Care Team Providers Care Adoption Services Manager Name Role Phone Abdiel Bar MD Unavailable [phone] Lester, Lisa A Primary Care Provider [phone] Lisa Batisat A Unavailable [phone] Reason for Referral * MRI/CAT Scan - Closed Specialty Diagnoses / Procedures Referred By Contharish wisdom Referred To Contact Radiology Diagnoses Radiculopathy, lumbar region Other intervertebral disc degeneration, lumbar region Procedures MRI Lumbar Spine Wilmer Hill MD Phone: tel: fax: [email or web address] Referral ID Status Reason Start Date Expiration Date Visits Re quested Visits Authorized [id number] Closed 04/24/2023 1 1 Encounter Details Date Type Department Care Team (Latest Contact Info) Description 04/24/2023 Transcribe Orders Virtual Department [address] [place] [address] Wilmer Hill MD [address] [place] [phone] [email or web address] Radiculopathy, lumbar region (Primary Dx); Other intervertebral disc degeneration, lumbar region Social History Tobacco Use Types Packs/Day Years [...] with a working camera? Not on file Sex and Gender Information Value Date Recorded Sex Assigned at Male 11/28/2020 12:19 PM EDT Legal Sex Male 9:43 AM EDT Gender Identity Male 11/28/2020 12:19 PM EDT Sexual Orientation Straight 11/28/2020 12 :19 PM EDT documented as of this encounter Plan of Treatment Not on file documented as of this encounter Results * MRI LUMBAR SPINE (BONE) WITHOUT CONTRAST (05/04/2023 3:45 PM EST) Anatomical Region Laterality Modality L-spine Magnetic Resonan ce 05/05/2023 9:38 PM EST Impressions 05/06/2023 9:28 AM EST Large disc bulge with superimposed left foraminal protrusion at L2-L3, which severely narrows the spinal canal, as described. Discogenic edema at this level. Additional multilevel degenerative change, most notable at L4-L5, where there is moderate spinal canal stenosis. Narrative 05/06/2023 9:28 AM EST MRI LUMBAR SPINE (BONE) WITHOUT CONTRAST Referring clinician's provided indication for this examination in Epic: Outside Radiology Order; RADICULOPATHY LUMBAR REGION TECHNIQUE: Multi-sequence, multi-planar MRI of the lumbar spine was performed without intravenous contrast. COMPARISON: No relevant comparison. FINDINGS: 5 mm of retrolisthesis of L2 on L3. Less than 2 mm of anterolisthesis of T11 on T12 and L4 on L5. Multilevel loss of intervertebral disc height and signal, most notable at L2-L3. Slight dextrocurvature centered at L2-L3. Discogenic edema at L2-L3. No concerning marrow infiltration. Conus tip is normal, terminating at L2. Partially visualized soft tissues show T2 hyperintensities in both kidneys, incompletely assessed, but likely cysts. No acute findings or incidental for which follow-up is required in the partially visualized soft tissues. Findings by level: T11-T12: Minimal anterolisthesis. Posterior disc bulge. Ligamentum flavum thickening. Mild spinal canal stenosis. No foraminal stenosis. T12-L1: No spinal or foraminal stenosis. L1-L2: No spinal or foraminal stenosis. L2-L3: Large disc bulge with superimposed left paracentral extrusion, which extends inferiorly along the L3 vertebral body. Finding obliterates the left subarticular zone, with compression of all traversing nerve roots in the left slime-canal. Central canal stenosis is overall severe. Mild bilateral foraminal stenosis, left greater than right. L3-L4: Small posterior disc bulge, with superimposed left foraminal protrusion. Mild bilateral facet arthropathy. Mild spinal canal and bilateral foraminal stenosis, left greater than right. L4-L5: Minimal anterolisthesis. Posterior disc bulge with superimposed central protrusion. Moderate spinal canal stenosis, with narrowing of both subarticular zones. Disc bulge approaches, but does not appear to contact the traversing L5 nerve roots. Mild bilateral foraminal stenosis. L5-S1: Small posterior disc bulge. Moderate bilateral facet arthropathy, left greater than right. No spinal or foraminal stenosis. Procedure Note Kamlesh Mullen MD - 05/06/2023 MRI LUMBAR SPINE (BONE) WITHOUT CONTRAST Referring clinician's provided indication for this examination in Epic:Outside Radiology Order; RADICULOPATHY LUMBAR REGION TECHNIQUE: Multi-sequence, multi-planar MRI of the lumbar spine wasperformed without intravenous contrast. COMPARISON: No relevant comparison. FINDINGS: 5 mm of retrolisthesis of L2 on L3. Less than 2 mm of anterolisthesis ofT11 on T12 and L4 on L5. Multilevel loss of intervertebral disc height andsignal, most notable at L2-L3. Slight dextrocurvature centered at L2-L3.Discogenic edema at L2-L3. No concerning marrow infiltration. Conus tip isnormal, terminating at L2. Partially visualized soft tissues show T2 hyperintensities in bothkidneys, incompletely assessed, but likely cysts. No acute findings orincidental for which follow-up is required in the partially visualizedsoft tissues. Findings by level: T11-T12: Minimal anterolisthesis. Posterior disc bulge. Ligamentum flavumthickening. Mild spinal canal stenosis. No foraminal stenosis. T12-L1: No spinal or foraminal stenosis. L1-L2: No spinal or foraminal stenosis. L2-L3: Large disc bulge with superimposed left paracentral extrusion,which extends inferiorly along the L3 vertebral body. Finding obliteratesthe left subarticular zone, with compression of all traversing nerve rootsin the left slime-canal. Central canal stenosis is overall severe. Mildbilateral foraminal stenosis, left greater than right. L3-L4: Small posterior disc bulge, with superimposed left foraminalprotrusion. Mild bilateral facet arthropathy. Mild spinal canal andbilateral foraminal stenosis, left greater than right. L4-L5: Minimal anterolisthesis. Posterior disc bulge with superimposedcentral protrusion. Moderate spinal canal stenosis, with narrowing of bothsubarticular zones. Disc bulge approaches, but does not appear to contactthe traversing L5 nerve roots. Mild bilateral foraminal stenosis. L5-S1: Small posterior disc bulge. Moderate bilateral facet arthropathy,left greater than right. No spinal or foraminal stenosis. IMPRESSION: Large disc bulge with superimposed left foraminal protrusion at L2-L3,which severely narrows the spinal canal, as described. Discogenic edema atthis level. Additional multilevel degenerative change, most notable at L4-L5, wherethere is moderate spinal canal stenosis. Wilmer Hill MD IMG MR XSPECIALTY Final Result documented in this encounter Visit Diagnoses Diagnosis Radiculopathy, lumbar region- Primary Thoracic or lumbosacral neuritis or radiculitis, unspecified Other intervertebral disc degeneration, lumbar region Radiculopathy, lumbar region Thoracic or lumbosacral neuritis or radiculitis, unspecified Other intervertebral disc degeneration, lumbar region documented in this encounter Additional Health Concerns Infection Onset Date Last Indicated Resolved Time COVID-19 05/05/2023 05/05/2023 05/26/2023 1:21 AM EST Assessment Noted Time PHQ-2 Depression Total Score: 0 11/15/19 2:57 PM EDT documented as of this encounter Care Teams Adoption Services Manager Relationship Specialty Start Date End Date Lisa Batista MD [address] [place] [address], [address] [place] [address] [email or web address] PCP - General Internal Medicine 06/30/21 Abdiel Bar MD [address] [place] [address] Historical LMR Provider 01/10/17 Lisa Batista MD [address] [place] [address] [email or web address] Insurance Assigned Provider 06/30/23 documented as of this encounter Additional Source Comments The information contained in this document represents components of the legal health record. It is not the complete legal health record.[facility]
--- OUTSIDE RECORDS SUMMARY | 2025-01-28 16:08 | XMS_ITS | Encounter Summary ---
Author Organization [facility] Address [address] [place] [address] Phone Care Team Providers Care Sales Appointment Coordinator Name Role Phone Abdiel Bar MD Unavailable [phone] Batista, Lisa A Primary Care Provider [phone] Lisa Batista A Unavailable [phone] Reason for Referral * MRI/CAT Scan - Closed Specialty Diagnoses / Procedures Referred By Contac t Referred To Contact Radiology Diagnoses Lumbar facet joint pain Procedures MRI Lumbar Spine Diogenes Rosario MD [address] [place] [address] [place] [address] Phone: tel: fax: Referral ID Status Reason Start Date Expiration Date Visits Re quested Visits Authorized [id number] Closed 03/13/2024 03/13/2025 1 1 Encounter Details Date Type Department Care Team (Late st Contact Info) Description 03/13/2024 Transcribe Orders Virtual Department [address] [place] [address] Diogenes Rosario MD [address] [place] [address] [place] [address] Lumbar facet joint pain (Primary Dx) Social History Tobacco Use Types [...] this encounter Results * MRI LUMBAR SPINE (NEURO) WITH AND WITHOUT CONTRAST (04/09/2024 4:45 PM EST) Anatomical Region Laterality Modality L-spine Magnetic Resonan ce 04/10/2024 4:18 PM EST Impressions 04/10/2024 4:38 PM EST Status post interval microdiscectomy at L2-L3, with resolution of previously seen LEFT subarticular disc extrusion, and previously seen severe spinal canal stenosis. There is residual mild bilateral subarticular, mild RIGHT, and moderate LEFT foraminal stenosis at L2-L3. Narrative 04/10/2024 4:38 PM EST MRI LUMBAR SPINE (NEURO) WITH AND WITHOUT CONTRAST Referring clinician's provided indication for this examination in [facility]: Outside Radiology Order; l facet joint pain, s/p lumbar surgery TECHNIQUE: MRI LUMBAR SPINE (NEURO) WITH AND WITHOUT CONTRAST Multi-sequence, multi-planar MRI of the lumbar spine was performed without and with intravenous contrast. COMPARISON: MRI LUMBAR SPINE (BONE) WITHOUT CONTRAST 2023- FINDINGS: LUMBAR SPINE: Alignment and Vertebrae: 3 mm this L2 on L3, similar to prior. Vertebral body height is maintained. Marrow: Endplate centered degenerative changes, especially at T2-T3 with marrow edema, progressed compared to prior. Discs and Endplates: Severe loss of disc height at L2-L3, likely status post interval micro-discectomy. Multilevel disc desiccation with additional multilevel mild loss of disc height. Conus: Normal. Contrast: No abnormal enhancement in the lumbar spine spinal canal. Soft Tissue: No prevertebral edema. Multiple T2 hyperintensities in the kidneys, measuring up to 1.7 cm on the LEFT and 1.5 cm on the RIGHT, incompletely visualized and incompletely characterized. Distal colonic diverticulosis, incompletely visualized. Other Findings: None. Findings by level: T12-L1: Mild facet arthropathy with no significant spinal or foraminal stenosis. L1-L2: Moderate facet arthropathy with no significant spinal or foraminal stenosis. L2-L3: Status post interval microdiscectomy, with resolution of previously seen LEFT subarticular disc extrusion, with residual disc bulge for posterior disc osteophyte complex with moderate facet arthropathy, these findings contributing mild bilateral subarticular and mild RIGHT, moderate LEFT foraminal stenosis. Resolution of previously seen severe spinal canal stenosis. L3-L4: Mild disc bulge with moderate to severe facet arthropathy, contributing to mild bilateral subarticular, worse on the LEFT and mild bilateral foraminal stenosis. L4-L5: Mild to moderate disc bulge with severe facet arthropathy contributing to mild bilateral subarticular and moderate bilateral foraminal stenosis. L5-S1: Mild bilateral facet arthropathy contributing to mild bilateral foraminal stenosis. Procedure Note Phu Garcia MD, PhD - 04/10/2024 MRI LUMBAR SPINE (NEURO) WITH AND WITHOUT CONTRAST Referring clinician's provided indication for this examination in [facility]:Outside Radiology Order; l facet joint pain, s/p lumbar surgery TECHNIQUE: MRI LUMBAR SPINE (NEURO) WITH AND WITHOUT CONTRAST Multi-sequence, multi-planar MRI of the lumbar spine was performed withoutand with intravenous contrast. COMPARISON: MRI LUMBAR SPINE (BONE) WITHOUT CONTRAST 2023- FINDINGS: LUMBAR SPINE: Alignment and Vertebrae: 3 mm this L2 on L3, similar to prior. Vertebralbody height is maintained. Marrow: Endplate centered degenerative changes, especially at T2-T3 withmarrow edema, progressed compared to prior. Discs and Endplates: Severe loss of disc height at L2-L3, likely statuspost interval micro-discectomy. Multilevel disc desiccation withadditional multilevel mild loss of disc height. Conus: Normal. Contrast: No abnormal enhancement in the lumbar spine spinal canal. Soft Tissue: No prevertebral edema. Multiple T2 hyperintensities in thekidneys, measuring up to 1.7 cm on the LEFT and 1.5 cm on the RIGHT,incompletely visualized and incompletely characterized. Distal colonicdiverticulosis, incompletely visualized. Other Findings: None. Findings by level: T12-L1: Mild facet arthropathy with no significant spinal or foraminalstenosis. L1-L2: Moderate facet arthropathy with no significant spinal or foraminalstenosis. L2-L3: Status post interval microdiscectomy, with resolution of previouslyseen LEFT subarticular disc extrusion, with residual disc bulge forposterior disc osteophyte complex with moderate facet arthropathy, thesefindings contributing mild bilateral subarticular and mild RIGHT, moderateLEFT foraminal stenosis. Resolution of previously seen severe spinal canalstenosis. L3-L4: Mild disc bulge with moderate to severe facet arthropathy,contributing to mild bilateral subarticular, worse on the LEFT and mildbilateral foraminal stenosis. L4-L5: Mild to moderate disc bulge with severe facet arthropathycontributing to mild bilateral subarticular and moderate bilateralforaminal stenosis. L5-S1: Mild bilateral facet arthropathy contributing to mild bilateralforaminal stenosis. IMPRESSION: Status post interval microdiscectomy at L2-L3, with resolution ofpreviously seen LEFT subarticular disc extrusion, and previously seensevere spinal canal stenosis. There is residual mild bilateralsubarticular, mild RIGHT, and moderate LEFT foraminal stenosis at L2-L3. us Diogenes Rosario MD IMG MR XSPECIALTY Final R esult documented in this encounter Visit Diagnoses Diagnosis Lumbar facet joint pain- Primary Lumbar facet joint pain documented in this encounter Additional Health Concerns Assessment Noted Time PHQ-2 Depression Total Score: 0 11/28/19 2:31 PM EDT documented as of this encounter Care Teams Sales Appointment Coordinator Relationship Specialty Start Date End Date Lisa Batista MD [address] [place] [phone] PCP - General Internal Medicine 06/30/21 Abdiel Bar MD [address] [place] [phone] [email or web address] Historical LMR Provider 01/10/17 Lisa Batista MD [address] [place] [address] [email or web address] Insurance Assigned Provider 06/30/23 documented as of this encounter Additional Source Comments The information contained in this document represents components of the legal health record. It is not the complete legal health record.[facility]
--- OUTSIDE RECORDS SUMMARY | 2025-01-28 16:08 | XMS_ITS | Encounter Summary ---
Author Organization [facility] Address [address] [place] [address] Phone Care Team Providers Care Upward Bound Director Name Role Phone Abdiel Bar MD Primary Care Provider + Chicho Allred MD Unavailable [phone] Abdiel Bar MD Unavailable Alejo Weems MD Unavailable [phone] Abdiel Bar MD Unavailable Blanca Souza RNcatalogue and special products manager Provider [phone] Lisa Batista A Unavailable [phone] Unknown, Unknown MD Primary Care Provider Unastephanie Batista, Lisa A Primary Care Provider [phone] Lisa Batista A Unavailable [phone] Encounter Details Date Type Department Care Team (Late st Contact Info) Description 06/21/2018 Procedure Pass [facility] [address] [place] [id number] Social History Tobacco Use Types Packs/Day Years [...] documented as of this encounter Care Teams Upward Bound Director Relationship Specialty Start Date End Date Abdiel Bar MD [email or web address] PCP - General Family Medicine 07/10/16 12/01/19 Blanca Souza RN [address] [place] [address] [email or web address] PCP - General Internal Medicine 12/02/19 08/02/20 Unknown, Danita, MD PCP - General 08/03/20 06/29/21 Lisa Batista MD [address] [place] [phone] [email or web address] PCP - General Internal Medicine 06/30/21 Chicho Allred MD [address] [place] [address] [email or web address] Historical LMR Provider 01/10/17 04/02/21 Abdiel Bar MD [address] [place] [address] [email or web address] Historical LMR Provider 01/10/17 Alejo Weems MD [address] [place] [address] Orthopedics & Sports Medicine, [facility] [place] [address] [email or web address] Historical LMR Provider 01/10/17 2 Abdiel Bar MD [address] [place] [address] [email or web address] Insurance Assigned Provider 07/27/18 07/03/20 Lisa Batista MD [address] [place] [address] [email or web address] Insurance Assigned Provider 07/03/20 04/02/21 Lisa Batista MD [address] [place] [address] [email or web address] Insurance Assigned Provider 06/30/23 documented as of this encounter Additional Source Comments The information contained in this document represents components of the legal health record. It is not the complete legal health record.[facility]
--- OUTSIDE RECORDS SUMMARY | 2025-01-28 16:08 | XMS_ITS | Encounter Summary ---
Author Organization [facility] Address [address] [place] [address] Phone Care Team Providers Care Solar Energy Installation Manager Name Role Phone Abdiel Bar MD Unavailable [phone] Lisa Batista A Primary Care Provider [phone] Lisa Batista A Unavailable [phone] Encounter Details Date Type Department Care Team (Late st Contact Info) Description 04/24/2023 Procedure Pass [facility], [address] [place] [address] Social History Tobacco Use Types Packs/Day Years [...] Time PHQ-2 Depression Total Score: 0 11/15/19 23 2:57 PM EDT documented as of this encounter Care Teams Solar Energy Installation Manager Relationship Specialty Start Date End Date Lisa Batista MD [address] [place] [address] [email or web address] PCP - General Internal Medicine 06/30/21 Abdiel Bar MD [address] [place] [address] [email or web address] Historical LMR Provider 01/10/17 Lisa Batista MD [address] [place] [address] [email or web address] Insurance Assigned Provider 06/30/23 documented as of this encounter Additional Source Comments The information contained in this document represents components of the legal health record. It is not the complete legal health record.[facility]
--- OUTSIDE RECORDS SUMMARY | 2025-01-28 16:08 | XMS_ITS | Data Portability ---
Author Organization [place] - [facility], Allergy Address [address] [place] [phone] Care Team Providers Care Drum Worker Name Role Phone LÁZARO JACOB Primary Care Provider Assessment Encounter Date Assessment Date Assessment LastModified by Organization Details LastModified Time 05/08/2024 05/08/2024 Recommendatio ns: Follow up with referring provider. [email or web address] Not available 05/08/2024 09:49:15 Plan of Treatment Reminders Order Date Submit Date Provider Last Modified By Organization Details Last Modified Time Details Appointments None record ed. Lab None record ed. Referral None record ed. Procedures None record ed. Surgeries None record ed. Imaging None record ed. Medication Orders None record ed. Patient TargetsNo targets recorded. Patient InstructionsNo instructions recorded. Reason for Referral None Reported. Results Created Date Observation Date Name Description Value Unit Range Abnormal Flag Note LastModifiedBy Organization Detail LastModifiedTime 05/08/19 25 audio gram No observ ation record ed. BARCODE Not Available 2024 16:24:28 Result Notes None recorded. Problems Name Problem SNOMED Code Status Onset Date Resolution Date Notes Provider Name and Address Organization Details Recorded Time Bilateral tinnitus 26566073107 02 Active 2020 Tinnitus, bilateral ; Note: Date Diagnosed : 1 2:22 PM (H93.13) Not Available [facility] 4 03:28:17 Sensorine ural hearing loss of bilateral ears 655357259 Active 2020 Sensorine ural hearing loss, bilateral ; Note: Date Diagnosed : 1 2:22 PM (H90.3) Not Available [facility] 4 03:28:16 Impacted cerumen of bilateral ears 61488988909 40986 Active 2020 Impacted cerumen, bilateral ; Note: Date Diagnosed : 1 2:45 PM (H61.23) Not Available [facility] 4 03:28:17 Problem Notes None recorded. Procedures Surgical History Date Name Laterality Status Provider Name and Address Organization Details Recorded Time 5 Comp Audio 54650 completed Bro CACERES [address] [facility],[address], [phone], [facility] 05/08/2024 09:56:09 5 Cerumen removal with microscope bilateral completed WANG RANKIN MD [address] [facility],[address], [address], [facility] 05/08/2024 09:44:56 Imaging Results None recorded. Procedure Notes None recorded. Medical Equipment None Reported. Medications Name Sig Start Date Stop Date Status Note LastModified by Organization Details LastModified Time oxycodone 5 mg tablet active Not Available Not Available No t Available rosuvastati n 20 mg tablet active Medication ID: [id number] Bra nd Name: rosuvastat in Send Method: E-Prescrib ed Subs Allowed: subs OK Medicat ionGeneric Name: rosuvastat in Not Available Not Available Not Available rosuvastati n 40 mg tablet TAKE 1 TABLET BY MOUTH EVERY DAY active Not Available Not Available No t Available Vitals None Recorded Social History None recorded. Functional Status None recorded. Mental Status None recorded. Family History Nothing Reported. Medical History No medical history recorded. Past Encounters Encounter ID Performer Location Encounter Start Date Encounter Closed Date Diagnosis/Indication Diagnosis SNOMED-CT Code Diagnosis ICD10 Code Diagnosis IMO Codes Diagnosis Note [id number] WANG RANKIN MD [facility] [address] [place] [address] 05/08/2024 08:41:53 05/08/2024 10:38:20 Impacted cerumen of bilateral ears [id number] 077912 H61.23 Recurrent Cerumen Impactions : Ears were meticulous ly cleaned bilaterall y today with a curette and suction. The patient tolerated this well and will follow up for repeat debridemen t per routine. Sensorineu ral hearing loss of bilateral ears [id number] H90.3 Not yet a candidate for hearing aids. He may f/u in 2 years or if changes for a repeat audio. [id number] Bro CACERES [facility] [address] [facility] [place] [address] 05/08/2024 09:48:54 05/08/2024 10:33:51 Sensorineural hearing loss of bilateral ears 693839714 H90.3 Audiologic al evaluation results:Ri ght ear:Normal hearing from 250 through 3000 Hz sloping to severe sensorineu ral hearing loss with excellent word recognitio n.Left ear:Normal hearing from 250 through 2000 Hz sloping to severe sensorineu ral hearing loss with excellent word recognitio n. Tympanomet ry:Right Ear:Could not maintain a hermetic sealLeft Ear:Could not maintain a hermetic seal Health Concerns Section Related Observation LastModified by Organization Detai ls LastModified Time None Recorded Concern Status LastModified by Organization Details LastModified Time None Recorded Advance Directives Directive None Recorded Payers Insurance Date Sequence Insurance Name Policy Number Policy Reddy Covered Member ID Reddy Member ID Guarantor Name 05/08/2024 1 [place] [employer] Iceoscar Headzen [id number] Iceoscar Headzen 05/08/2024 2 [facility] IN[facility]MN[facility] (INDEMNITY) [id number] Elli Almaguer [id number] Iceoscar Almaguer Notes Date Note Type Note Provider Name and Address Organization Details Recorded Time 5 text/html Audiological Evaluation HPIReported by PatientPast Audiological Evaluation ResultsFor past audiological evaluation results, patient reportssensorineural hearing loss (both ears)but reportsamplification has not been recommended. Bro CACERES [address] [address], [place], [phone], [facility] - [facility] 05/08/2024 14:04:46 5 text/html ROS as noted in the HPI Hx of SNHL AU. Does not note any changes. Audiology noted cerumen impactions. WANG RANKIN MD [address] [place] [address], [place], [address], [facility] - [facility] 05/08/2024 10:28:00
== END 2025-01-28 14:20 | disposition home or self-care (01) ==
LOC: HO.HNS 13:19
PROVIDERS: PCP Internal Medicine; Visit Provider Neurological Surgery
DX: M54.59 Other low back pain (principal)
CPT/HCPCS: 99212

== ENCOUNTER → 2025-01-28 13:18 | Outpatient (BNVA) | payer MEDICARE, OTHER, SELFPAY | PROVIDERS: PCP Internal Medicine; Visit Provider Neurological Surgery | DX: M54.59 Other low back pain (principal); Z79.899 Other long term (current) drug therapy | CPT/HCPCS: 99212 ==